=== PATIENT | male | born 1940 | race Native Hawaiian/Other Pacific Islander ===

== ENCOUNTER 2016-05-28 23:30 | Inpatient (IN) | payer OTHER, MEDICARE ==
[~2016-05-28] VITALS: Ht 172.7 cm; Wt 70.0 kg
[~2016-05-28 23:30] MED LIST: ASPI325T PO; ASPI81TA82 PO; ATOR10TA PO; CLON-409 PO; CLON0.2D TD; CLON0.3D T-DERMAL; EMPA1TAB5 PO; ENOX40P SQ; FELO10TA PO; FELO2.5T PO; HYDR-3129 PO; HYDR50TA94 PO; INSU1.2I SQ; LACT10SO47 PO; LIBRAX PO; LIPI10TA PO; LISI-360 PO; LISI-363 PO; NADO40TA PO; NOVOINJ3 SQ; NOVOLOGP2 SQ; PERC10TA27 PO; RAMI10CA PO; Z.0.COMMODE-3:1; Z.0.WALKERFRONT
[2016-05-28 23:40] VITALS: BP 187/83; PULSE 96; RESP 18; TEMP 98; O2SAT 98
[2016-05-28 23:46] VITALS: BP 187/83; PULSE 87; RESP 18; O2SAT 98
[2016-05-28] MEDS ORDERED: SODIUM CHLOR 0.9% 1000 ML INJ 1,000 ML IV SCH (23:46)
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
[2016-05-29] MEDS ORDERED: ceFAZolin 2 GM PREMIX 50 ML IV ONE
[2016-05-29] MEDS ORDERED: DIPHTH/TETANUS/ACEL PERTUSSIS (BOOSTER) 0.5 ML VIAL/PFS IM ONE
[2016-05-29] MEDS ORDERED: ONDANSETRON HCL 4 MG/2 ML VIAL IVP ONE
[2016-05-29] MEDS ORDERED: MORPHINE SULFATE 4 MG/ML INJ IV ONE
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
[2016-05-29 01:32] LABS: APTT (PATIENT) 22.9 SEC (24.3-30.1); INTERNATIONAL NORMALIZED RATIO 0.9 RATIO; PROTHROMBIN TIME - PATIENT 10.3 SEC (9.8-11.6)
[2016-05-29 01:33] LABS: BLOOD, URINE NEG (NEG); COMMENT (UR) CULT NOT INDICATED; CULTURE IF INDICATED CULT NOT INDICATED; GLUCOSE,URINE NEG (NEG); KETONE, URINE NEG (NEG); MUCUS URINE FEW /lpf (OCC); NITRITE,URINE NEG (NEG); PH, URINE 5.5 (5.0-8.5); SQUAMOUS EPITHELIAL CELL URINE <1 /hpf (0-5); URINE COLOR YELLOW (YELLW/STRAW)
[2016-05-29 01:46] LABS: ALKALINE PHOSPHATASE 49 U/L (45-117); TOTAL BILIRUBIN ADULT 0.4 MG/DL (0.2-1.0)
[2016-05-29 01:53] VITALS: BP 177/77; PULSE 97; RESP 18; TEMP 98; O2SAT 97
[2016-05-29 02:07] LABS: ALT (GPT) 28 U/L (12-78); ANION GAP 9 MEQ/L (5-15); AST (GOT) 22 U/L (15-37); BICARBONATE 26.8 MEQ/L (21.0-32.0); BLOOD UREA NITROGEN 22 MG/DL (7-18); CHLORIDE 105 MEQ/L (98-107); GLOMERULAR FILTRATION RATE 79 ML/MIN (>89); SODIUM (NA) 141 MEQ/L (136-145)
[2016-05-29 02:09] LABS: POTASSIUM 4.4 MEQ/L (3.5-5.1)
[2016-05-29 03:56] LABS: AUTOMATED NEUTROPHIL # 10.4 TH/MM3 (1.8-7.7); BASOPHIL # 0.1 TH/MM3 (0-0.2); BASOPHIL % 0.7 % (0.0-2.0); EOSINOPHIL # 0.1 TH/MM3 (0-0.4); EOSINOPHIL % 1.1 % (0.0-4.0); HEMATOCRIT 35.3 % (39.0-51.0); LYMPH % 15.1 % (9.0-44.0); LYMPHOCYTE # 2.1 TH/MM3 (1.0-4.8); MEAN CORPUSCULAR HEMOGLOBIN 33.3 PG (27.0-34.0); MEAN CORPUSCULAR HGB CONC 34.3 % (32.0-36.0); MONO % 7.2 % (0.0-8.0); NEUT % 75.9 % (16.0-70.0); PLATELET COUNT 343 TH/MM3 (150-450); RED BLOOD COUNT 3.64 MIL/MM3 (4.50-5.90); RED CELL DISTRIBUTION WIDTH 13.3 % (11.6-17.2); WHITE BLOOD COUNT 13.6 TH/MM3 (4.0-11.0)
[2016-05-29 03:57] LABS: HEMO FLAGS AUTO DIFF
[2016-05-29] MEDS: SODIUM CHLOR 0.9% 1000 ML INJ 1,000 ML IV SCH ×2 (03:58→13:45)
[2016-05-29] MEDS: MORPHINE SULFATE 4 MG/ML INJ IV PRN ×6 (03:58→21:31)
--- NOTE | 2016-05-29 04:09 | RADRPT ---
EXAM DATE/TIME: 05/29/2016 03:24 [facility] COMPARISON: KNEE RIGHT COMPLETE (4VWS), May 29, 2016, 0:30. INDICATIONS : Abnormal xrays, evaluate fracture. RADIATION DOSE: 18.22 CTDIvol (mGy) MEDICAL HISTORY : Diabetes mellitus type 2. Cardiovascular disease Cerebrovascular disease. SURGICAL HISTORY : None. ENCOUNTER: Initial ACUITY: 1 day PAIN SCALE: 5/10 LOCATION: Right knee TECHNIQUE: Volumetric scanning of the knee was performed. Using automated exposure control and adjustment of th e mA and/or kV according to patient size, radiation dose was kept as low as reasonably achievable to obtain optimal diagnostic quality images. FINDINGS: There is a lipohemarthrosis. There is subcutaneous edema. There is a mildly displaced fracture throug h the head of the fibula. Coronal images best demonstrate a fracture through the proximal tibial meta physis extending into the articular surface of the medial and lateral tibial plateaus. There is a williams y slight cortical step off seen of the medial tibial plateau. CONCLUSION: Tibia and fibular fractures. Lazaro Kaur MD on May 29, 2016 at 4:05 Board Certified Radiologist. This report was verified electronically.
--- NOTE | 2016-05-29 04:11 | RADRPT ---
EXAM DATE/TIME: 05/29/2016 03:24 [facility] COMPARISON: KNEE LEFT COMPLETE (4VWS), May 29, 2016, 0:34. INDICATIONS : Abnormal xrays, evaluate fracture. RADIATION DOSE: 18.22 CTDIvol (mGy) MEDICAL HISTORY : Diabetes mellitus type 2. Cardiovascular disease Cerebrovascular disease. SURGICAL HISTORY : None. ENCOUNTER: Initial ACUITY: 1 day PAIN SCALE: 5/10 LOCATION: Left knee TECHNIQUE: Volumetric scanning of the knee was performed. Using automated exposure control and adjustment of th e mA and/or kV according to patient size, radiation dose was kept as low as reasonably achievable to obtain optimal diagnostic quality images. FINDINGS: A lipohemarthrosis is noted. There is a comminuted mildly anteriorly and inferiorly displaced fractur e through the proximal tibia at the level of the medial tibial plateau, as well as a displaced fractu re fragment off the head of the proximal fibula. CONCLUSION: 1. Proximal fibular and tibial fractures. Lazaro Kaur MD on May 29, 2016 at 4:07 Board Certified Radiologist. This report was verified electronically.
[2016-05-29 04:41] LABS: BANDS 3 % (0-6); EOSINOPHILS 1 % (0-4); METAMYELOCYTES 2 % (0-1); MYELOCYTES 1 % (0-0); NEUTROPHIL # MANUAL DIFF 10.5 TH/MM3 (1.8-7.7); POLYS (SEG NEUTROPHILS) 71 % (16-70); SCAN/DIFF FINAL DIFF MANUAL; WBC DIFF SAMPLE 100
[2016-05-29 04:42] LABS: PLATELET ESTIMATE SMEAR NORMAL (NORMAL); PLATELET MORPHOLOGY NORMAL (NORMAL)
[2016-05-29 05:21] VITALS: BP 145/103; PULSE 123; RESP 18; TEMP 97.9; O2SAT 97
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
--- NOTE | 2016-05-29 07:14 | HHI.FF ---
Face to Face Verification Diagnosis: (1) Fracture tibia/fibula Physical Therapy Transfer training, bed to chair, Wheelchair training Knee: Knee fracture, Protocol: Right, Protocol: Left, Non weight bearing Canvas Knee Splint: Remove only with PT Right LE Weight Bearing: Non WB, No Strengthening, No Quad Sets Right LE Range of Motion: Passive ROM (0-90deg) Left LE Weight Bearing: Non WB, No Strengthening, No Quad Sets Left LE Range of Motion: Passive ROM (0-90deg) Nursing Nursing: Dressing changes Dressing Changes: Daily dressing change, Dutch wrap, 4x4s, Xeroform I have seen patient Marito Tong on 05/29/16. My clinical findings support the need for the requested home health care services because: Ltd mobility - disease progression I certify that my clinical findings support that this patient is homebound because: Post-op weakness Mustapha Romero May 29, 2016 07:14
[2016-05-29] MEDS ORDERED: WHEEMIS3 (07:16)
[2016-05-29 07:51] VITALS: BP 158/73; PULSE 108; RESP 16; TEMP 98.7; O2SAT 96
[2016-05-29] MEDS ORDERED: ONDANSETRON HCL 4 MG/2 ML VIAL IV PRN (08:30)
[2016-05-29] MEDS ORDERED: ENALAPRILAT 1.25 MG/ML VIAL IV PRN (08:30)
[2016-05-29] MEDS ORDERED: ACETAMINOPHEN 325 MG TAB PO PRN (08:30)
[2016-05-29] MEDS ORDERED: SODIUM CHLORIDE 0.9% FLUSH 10 ML FLUSH IV FLUSH PRN (08:30)
[2016-05-29] MEDS ORDERED: DEXTROSE 50% IN WATER 50 ML VIAL(D50) IV PUSH PRN (08:45)
[2016-05-29] MEDS ORDERED: GLUCAGON 1 MG/ML VIAL OTHER PRN (08:45)
[2016-05-29] MEDS ORDERED: cloNIDine HCL 0.3 MG/24 HR PATCH T-DERMAL SCH (09:00)
--- NOTE | 2016-05-29 09:22 | EKG ---
Date Performed: 05/29/2016 Time Performed: 02:31:17 PTAGE: 76 years EKG: SINUS TACHYCARDIA MODERATE T-WAVE ABNORMALITY, CONSIDER LATERAL ISCHEMIA MODERATE T-WAVE AB NORMALITY, CONSIDER INFERIOR ISCHEMIA ABNORMAL ECG PREVIOUS TRACING : 06/09/2015 12.59 DOCTOR: Gregorio Porter Interpretating Date/Time 05/29/2016 09:19:56
[2016-05-29] MEDS: KETOROLAC TROMETHAMINE 30 MG/ML (IVP) VIAL IV PUSH SCH ×3 (09:56→21:12)
[2016-05-29] MEDS: POLYETHYLENE GLYCOL 17 GM PKG PO SCH (09:56)
[2016-05-29] MEDS: NADOLOL 40 MG TAB PO SCH (09:57)
[2016-05-29] MEDS: RAMIPRIL 5 MG CAP PO SCH ×2 (09:57→21:11)
[2016-05-29] MEDS: GABAPENTIN 300 MG CAP PO SCH ×3 (09:58→18:00)
[2016-05-29] MEDS: FAMOTIDINE 20 MG TAB PO SCH ×2 (09:58→21:00)
[2016-05-29] MEDS: BACITRACIN TOP OINT 15 GM TUBE TOP SCH ×2 (09:58→21:12)
[2016-05-29] MEDS: DOCUSATE SODIUM 50 MG/SENNA 8.6 MG TAB PO SCH ×2 (09:59→21:11)
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
[2016-05-29] MEDS: INSULIN NovoLIN REGULAR SUPPLEMENTAL SCALE SQ SCH ×3 (11:00→21:12)
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
[2016-05-29 11:41] VITALS: BP 163/75; PULSE 95; RESP 19; TEMP 99.3; O2SAT 99
[2016-05-29] MEDS ORDERED: BISACODYL 10 MG SUPP PR PRN (11:45)
[2016-05-29] MEDS: LACTULOSE SYRUP 20 GM/30 ML CUP PO SCH (13:28)
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
[2016-05-29 16:15] VITALS: BP 164/71; PULSE 100; RESP 17; TEMP 100.4; O2SAT 95
[2016-05-29 19:33] VITALS: BP 208/84; PULSE 107; RESP 18; TEMP 97.9; O2SAT 97
[2016-05-29] MEDS ORDERED: FELODIPINE 10 MG PO SCH (21:00)
[2016-05-29] MEDS ORDERED: CLONIDINE 0.1 MG PO SCH (21:00)
[2016-05-29] MEDS: ATORVASTATIN 10 MG TAB PO SCH (21:11)
[2016-05-30] MEDS: MORPHINE SULFATE 4 MG/ML INJ IV PRN ×3 (01:10→10:53)
[2016-05-30 01:30] VITALS: BP 156/89; PULSE 97; RESP 18; TEMP 98.2; O2SAT 97
[2016-05-30] MEDS: KETOROLAC TROMETHAMINE 30 MG/ML (IVP) VIAL IV PUSH SCH ×4 (04:00→21:10)
[2016-05-30 06:17] LABS: AUTOMATED NEUTROPHIL # 14.3 TH/MM3 (1.8-7.7); BASOPHIL # 0.1 TH/MM3 (0-0.2); BASOPHIL % 0.4 % (0.0-2.0); EOSINOPHIL # 0.2 TH/MM3 (0-0.4); EOSINOPHIL % 1.1 % (0.0-4.0); HEMO FLAGS DIFF FINAL; LYMPH % 14.6 % (9.0-44.0); LYMPHOCYTE # 2.8 TH/MM3 (1.0-4.8); MEAN CELL VOLUME 95.6 FL (80.0-100.0); MEAN CORPUSCULAR HGB CONC 33.5 % (32.0-36.0); MONO % 8.3 % (0.0-8.0); NEUT % 75.6 % (16.0-70.0); PLATELET COUNT 256 TH/MM3 (150-450); RED BLOOD COUNT 3.45 MIL/MM3 (4.50-5.90)
[2016-05-30 06:25] VITALS: BP 156/80; PULSE 86; RESP 18; TEMP 98.2; O2SAT 97
[2016-05-30 06:43] LABS: ALKALINE PHOSPHATASE 51 U/L (45-117); ALT (GPT) 21 U/L (12-78); ANION GAP 12 MEQ/L (5-15); AST (GOT) 21 U/L (15-37); BICARBONATE 20.3 MEQ/L (21.0-32.0); BLOOD UREA NITROGEN 19 MG/DL (7-18); CHLORIDE 105 MEQ/L (98-107); GLOMERULAR FILTRATION RATE 75 ML/MIN (>89); POTASSIUM 3.8 MEQ/L (3.5-5.1); SODIUM (NA) 137 MEQ/L (136-145); TOTAL BILIRUBIN ADULT 0.7 MG/DL (0.2-1.0)
[2016-05-30] MEDS: INSULIN NovoLIN REGULAR SUPPLEMENTAL SCALE SQ SCH ×4 (06:48→21:00)
[2016-05-30 07:35] VITALS: BP 130/56; PULSE 112; RESP 20; TEMP 96.1; O2SAT 97
[2016-05-30] MEDS: DOCUSATE SODIUM 50 MG/SENNA 8.6 MG TAB PO SCH ×2 (09:00→21:06)
[2016-05-30] MEDS: POLYETHYLENE GLYCOL 17 GM PKG PO SCH (09:00)
[2016-05-30] MEDS: FAMOTIDINE 20 MG TAB PO SCH ×2 (09:00→21:07)
[2016-05-30] MEDS: INSULIN GLARGINE SQ SCH (09:00)
[2016-05-30] MEDS: NADOLOL 40 MG TAB PO SCH (09:29)
[2016-05-30] MEDS: GABAPENTIN 300 MG CAP PO SCH ×3 (09:29→17:45)
[2016-05-30] MEDS: LACTULOSE SYRUP 20 GM/30 ML CUP PO SCH (09:29)
[2016-05-30] MEDS: RAMIPRIL 5 MG CAP PO SCH ×2 (09:30→21:06)
[2016-05-30] MEDS: BACITRACIN TOP OINT 15 GM TUBE TOP SCH ×2 (09:31→21:10)
[2016-05-30] MEDS ORDERED: PNEUMOCOCCAL POLYVALENT INJ 25 MCG/0.5 ML SYR IM ONE (10:00)
--- NOTE | 2016-05-30 10:49 | HHI.PR ---
Subjective Remarks Patient seen and examined Denies chest pain or shortness of breath Afebrile by the bedside Objective Vitals Vital Signs Date Time Temp Pulse Resp B/P Pulse Ox O2 Delivery O2 Flow Rate FiO2 05/30/16 10:28 16 05/30/16 07:35 96.1 112 20 130/56 97 05/30/16 06:47 21 05/30/16 06:25 98.2 86 18 156/80 97 05/30/16 01:30 98.2 97 18 156/89 97 05/29/16 19:33 97.9 107 18 208/84 97 05/29/16 16:15 100.4 100 17 164/71 95 05/29/16 11:41 99.3 95 19 163/75 99 I/O 05/29/16 05/29/16 05/29/16 05/30/16 05/30/16 05/30/16 07:00 15:00 23:00 07:00 15:00 23:00 Intake Total 700 ml Output Total 950 ml Balance -250 ml Intake Oral 700 ml Output Urine Total 950 ml # Bowel Movements 6 Result Diagram: 05/30/16 0537 05/30/16 0537 Imaging Last Impressions Lower Extremity CT 05/29/16 0000 Signed Impressions: Service Date/Time: Sunday, May 29, 2016 03:24 - CONCLUSION: 1. Proximal fibular and tibial fractures. Lazaro Kaur MD Tibia/Fibula X-Ray 05/28/162345 Signed Impressions: Service Date/Time: Sunday, May 29, 2016 00:31 - CONCLUSION: Proximal fibular fracture and findings concerning for proximal tibial fracture at the level of the medial tibial plateau. Lazaro Kaur MD Pelvis X-Ray 05/28/162345 Signed Impressions: Service Date/Time: Sunday, May 29, 2016 00:26 - CONCLUSION: No acute disease. Lazaro Kaur MD Knee X-Ray 05/28/162345 Signed Impressions: Service Date/Time: Sunday, May 29, 2016 00:30 - CONCLUSION: Proximal tibia and fibular fractures. Knee joint effusion. Lazaro Kaur MD Chest X-Ray 05/28/162345 Signed Impressions: Service Date/Time: Sunday, May 29, 2016 00:23 - CONCLUSION: No acute disease. Lazaro Kaur MD Ankle X-Ray 05/28/16 0909 Signed Impressions: Service Date/Time: Sunday, May 29, 2016 00:33 - CONCLUSION: No acute disease. Lazaro Kaur MD Objective Remarks GENERAL: Well developed, well nourished. NAD HEENT: ATNC. EOMI, PERRL. OP clear with moist mucous membranes. Neck supple. LUNGS: Clear to auscultation bilaterally. No increased work of breathing. CARDIOVASCULAR: RRR without murmur. EXT: MAEX4. No c/c/e. NEURO: No focal deficits. SKIN: Color normal. No rashes. No lesions. PSYCH/MENTAL STATUS: Alert and oriented x 4 (P,P,T,E). Normal affect A/P Assessment and Plan 76 yrs old man with 1-Bilateral Nondisplaced tibial plateaux fractures: Seen by Orthopedic and no surgery. Instead conservative management. NWB, pain management and PT consult. - no quad sets or leg lifts. Maintain knee braces at all times and PROM 0-90 2-DM2 : Currently on Low ISS + FSBG monitoring; continue home regiment Basal insulin 3-Hypertension: Continue with outpatient medication 4-Constipation: Resolved and continue Stool softener Leukocytosis: Likely stress reactive Bg Michel MD May 30, 2016 10:49
[2016-05-30 11:38] VITALS: BP 114/59; PULSE 88; RESP 18; TEMP 97; O2SAT 96
--- NOTE | 2016-05-30 16:35 | HHI.PR ---
Subjective Subjective Notes Pain controlled. Planning on going to the [facility] on discharge. Objective Vitals/I&O Vital Signs Date Time Temp Pulse Resp B/P Pulse Ox O2 Delivery O2 Flow Rate FiO2 05/30/16 11:38 97.0 88 18 114/59 96 05/29/16 01:53 Room Air Labs Laboratory Tests Test 05/30/16 05:37 White Blood Count 19.0 Red Blood Count 3.45 Hemoglobin 11.0 Hematocrit 33.0 Mean Corpuscular Volume 95.6 Mean Corpuscular Hemoglobin 32.0 Mean Corpuscular Hemoglobin 33.5 Concent Red Cell Distribution Width 13.0 Platelet Count 256 Mean Platelet Volume 7.6 Neutrophils (%) (Auto) 75.6 Lymphocytes (%) (Auto) 14.6 Monocytes (%) (Auto) 8.3 Eosinophils (%) (Auto) 1.1 Basophils (%) (Auto) 0.4 Neutrophils # (Auto) 14.3 Lymphocytes # (Auto) 2.8 Monocytes # (Auto) 1.6 Eosinophils # (Auto) 0.2 Basophils # (Auto) 0.1 CBC Comment DIFF FINAL Differential Comment Sodium Level 137 Potassium Level 3.8 Chloride Level 105 Carbon Dioxide Level 20.3 Anion Gap 12 Blood Urea Nitrogen 19 Creatinine 0.97 Estimat Glomerular Filtration 75 Rate Random Glucose 193 Calcium Level 8.3 Total Bilirubin 0.7 Aspartate Amino Transf 21 (AST/SGOT) Alanine Aminotransferase 21 (ALT/SGPT) Alkaline Phosphatase 51 Total Protein 5.3 Albumin 2.5 Radiology Last Impressions Lower Extremity CT 05/29/16 0000 Signed Impressions: Service Date/Time: Sunday, May 29, 2016 03:24 - CONCLUSION: 1. Proximal fibular and tibial fractures. Lazaro Kaur MD Tibia/Fibula X-Ray 05/28/162345 Signed Impressions: Service Date/Time: Sunday, May 29, 2016 00:31 - CONCLUSION: Proximal fibular fracture and findings concerning for proximal tibial fracture at the level of the medial tibial plateau. Lazaro Kaur MD Pelvis X-Ray 05/28/162345 Signed Impressions: Service Date/Time: Sunday, May 29, 2016 00:26 - CONCLUSION: No acute disease. Lazaro Kaur MD Knee X-Ray 05/28/162345 Signed Impressions: Service Date/Time: Sunday, May 29, 2016 00:30 - CONCLUSION: Proximal tibia and fibular fractures. Knee joint effusion. Lazaro Kaur MD Chest X-Ray 05/28/162345 Signed Impressions: Service Date/Time: Sunday, May 29, 2016 00:23 - CONCLUSION: No acute disease. Lazaro Kaur MD Ankle X-Ray 05/28/162345 Signed Impressions: Service Date/Time: Sunday, May 29, 2016 00:33 - CONCLUSION: No acute disease. Lazaro Kaur MD Narrative Exam GENERAL: 76-year-old well-nourished, well developed male lying in bed. SKIN: Warm and dry. HEAD: Atraumatic. Normocephalic. ENT: No nasal bleeding or discharge. Mucous membranes pink and moist. NECK: Trachea midline. No JVD. CARDIOVASCULAR: Regular rate and rhythm. RESPIRATORY: No accessory muscle use. Lungs clear to auscultation. Breath sounds equal bilaterally. GASTROINTESTINAL: Abdomen soft, non-tender, nondistended. + BS. MUSCULOSKELETAL: Extremities without cyanosis, or edema. No obvious deformities. Bilateral CKS in place. LLE with Dutch wrap. + pulses, skin warm and dry. NEUROLOGICAL: Awake and alert. Normal speech. A/P Assessment and Plan INJURIES: BILAT non-displaced tibial plateau fxs (non-op) PMHX: HLD, HTN, DM, CVA, Diet: ADA Pulmonary: IS, encouraged patient use Pain: Morphine, Neurontin, Toradol. Adding oral pain medication. Activity: BR, PT ordered. ( NWB BLE) GI: Pepcid Bowel: Macy-colace, Miralax Lactulose QD. Dulcolax [place] PRN. No BM yet DVT: SCDs DM- Low dose SSI. Hospitalist consulted for medical management. Orthopedics following. Plan for nonweightbearing and nonoperative treatment for bilateral tibial plateau fractures. Case management consulted to assist with discharge planning. Patient requests the [facility] rehabilitation. Plan of care discussed with patient and at bedside. The exam, history, and the medical decision-making described in the above note were completed with the assistance of the mid-level provider. I reviewed and agree with the findings presented. I attest that I had a [id number] encounter with the patient on the same day, and personally performed and documented my assessment and findings in the medical record. Edmund Busby May 30, 2016 16:35 Jay Castorena MD Jun 15, 2016 23:31
[2016-05-30] MEDS: ENOXAPARIN SODIUM 30 MG/0.3 ML SYRINGE SQ SCH (17:45)
[2016-05-30 19:26] VITALS: BP 126/58; PULSE 81; RESP 20; TEMP 98.8; O2SAT 97
[2016-05-30] MEDS: ATORVASTATIN 10 MG TAB PO SCH (21:06)
[2016-05-31 00:05] VITALS: BP 158/83; PULSE 87; RESP 20; TEMP 97.9; O2SAT 98
[2016-05-31] MEDS: MORPHINE SULFATE 4 MG/ML INJ IV PRN ×2 (03:41→12:38)
[2016-05-31] MEDS: ENOXAPARIN SODIUM 30 MG/0.3 ML SYRINGE SQ SCH (03:42)
[2016-05-31] MEDS: KETOROLAC TROMETHAMINE 30 MG/ML (IVP) VIAL IV PUSH SCH ×2 (03:48→10:00)
[2016-05-31 04:07] VITALS: BP 136/64; PULSE 87; RESP 18; TEMP 98.6; O2SAT 98
[2016-05-31 06:00] LABS: AUTOMATED NEUTROPHIL # 10.6 TH/MM3 (1.8-7.7); BASOPHIL # 0.1 TH/MM3 (0-0.2); BASOPHIL % 0.4 % (0.0-2.0); EOSINOPHIL # 0.1 TH/MM3 (0-0.4); EOSINOPHIL % 0.8 % (0.0-4.0); HEMATOCRIT 27.4 % (39.0-51.0); HEMO FLAGS DIFF FINAL; LYMPH % 11.3 % (9.0-44.0); LYMPHOCYTE # 1.5 TH/MM3 (1.0-4.8); MEAN CELL VOLUME 95.8 FL (80.0-100.0); MEAN CORPUSCULAR HEMOGLOBIN 32.8 PG (27.0-34.0); MEAN CORPUSCULAR HGB CONC 34.3 % (32.0-36.0); MONO % 8.3 % (0.0-8.0); NEUT % 79.2 % (16.0-70.0); PLATELET COUNT 202 TH/MM3 (150-450); RED BLOOD COUNT 2.86 MIL/MM3 (4.50-5.90); RED CELL DISTRIBUTION WIDTH 13.2 % (11.6-17.2); WHITE BLOOD COUNT 13.3 TH/MM3 (4.0-11.0)
[2016-05-31] MEDS: INSULIN NovoLIN REGULAR SUPPLEMENTAL SCALE SQ SCH ×2 (06:09→11:00)
[2016-05-31 06:19] LABS: BICARBONATE 23.6 MEQ/L (21.0-32.0)
[2016-05-31 07:59] VITALS: BP 126/60; PULSE 89; RESP 20; O2SAT 98
[2016-05-31] MEDS: DOCUSATE SODIUM 50 MG/SENNA 8.6 MG TAB PO SCH (08:28)
[2016-05-31] MEDS: NADOLOL 40 MG TAB PO SCH (08:28)
[2016-05-31] MEDS: RAMIPRIL 5 MG CAP PO SCH (08:28)
[2016-05-31] MEDS: GABAPENTIN 300 MG CAP PO SCH ×2 (08:28→12:38)
[2016-05-31] MEDS: LACTULOSE SYRUP 20 GM/30 ML CUP PO SCH (08:31)
[2016-05-31] MEDS: POLYETHYLENE GLYCOL 17 GM PKG PO SCH (08:32)
[2016-05-31] MEDS: INSULIN GLARGINE SQ SCH (08:33)
[2016-05-31] MEDS: BACITRACIN TOP OINT 15 GM TUBE TOP SCH (08:33)
[2016-05-31] MEDS: FAMOTIDINE 20 MG TAB PO SCH (08:34)
[2016-05-31] MEDS: oxyCODONE/ACETAMINOPHEN 5 MG/325 MG TAB PO PRN ×2 (08:35→12:37)
[2016-05-31 11:00] VITALS: BP 105/49; PULSE 73; RESP 16; TEMP 98; O2SAT 96
--- NOTE | 2016-05-31 11:04 | HHI.PR ---
Subjective Remarks patient seen and examined Right leg swelling is improving and no significant left lower extremity pain NO acute event overnight Objective Vitals Vital Signs Date Time Temp Pulse Resp B/P Pulse Ox O2 Delivery O2 Flow Rate FiO2 05/31/16 07:59 89 20 126/60 98 05/31/16 04:07 98.6 87 18 136/64 98 05/31/16 03:46 12 05/31/16 00:05 97.9 87 20 158/83 98 05/30/16 22:10 12 05/30/16 19:26 98.8 81 20 126/58 97 05/30/16 11:38 97.0 88 18 114/59 96 I/O 05/30/16 05/30/16 05/30/16 05/31/16 05/31/16 05/31/16 07:00 15:00 23:00 07:00 15:00 23:00 Intake Total 700 ml Output Total 950 ml Balance -250 ml Intake Oral 700 ml Output Urine Total 950 ml # Bowel Movements 6 1 Result Diagram: 05/31/16 0459 05/31/16 0459 Objective Remarks GENERAL: Well developed, well nourished. NAD HEENT: ATNC. EOMI, PERRL. OP clear with moist mucous membranes. Neck supple. LUNGS: Clear to auscultation bilaterally. No increased work of breathing. CARDIOVASCULAR: RRR without murmur. EXT: MAEX4. No c/c/e. NEURO: No focal deficits. SKIN: Color normal. No rashes. No lesions. PSYCH/MENTAL STATUS: Alert and oriented x 4 (P,P,T,E). Normal affect A/P Assessment and Plan 76 yrs old man with 1-Bilateral Nondisplaced tibial plateaux fractures: Seen by Orthopedic and no surgery. Instead conservative management. NWB, pain management and PT consult. - no quad sets or leg lifts. Maintain knee braces at all times and PROM 0-90 2-DM2 : Good glycemic controlled; Currently on Low ISS + FSBG monitoring; continue home regiment Basal insulin 3-Hypertension: Continue with outpatient medication 4-Constipation: Resolved and continue Stool softener Bg Michel MD May 31, 2016 11:04
[2016-05-31] MEDS ORDERED: POLY17S PO (14:32)
[2016-05-31] MEDS ORDERED: BACI500O2 TOP (14:32)
[2016-05-31] MEDS ORDERED: ENOX30P SQ (14:32)
[2016-05-31] MEDS ORDERED: NEUR300C PO (14:32)
[2016-05-31] MEDS ORDERED: OXYC1TAB63 PO (14:32)
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
[2016-06-05] MEDS ORDERED: REMOVE OLD CATAPRES (CLONIDINE) PATCH TD SCH (09:00)
[2016-06-19] MEDS ORDERED: commode (16:15)
[2016-06-19] MEDS ORDERED: WHEEMIS3 (16:15)
[2016-06-19] MEDS ORDERED: TRANSFER BENCH1 MIS (16:15)
[2016-06-24] MEDS ORDERED: MELA1TAB22 PO (11:03)
[2016-06-24] MEDS ORDERED: PERC10TA27 PO (11:03)
[2016-06-24] MEDS ORDERED: GABA100C4 PO (11:03)
[2016-06-24] MEDS ORDERED: HYDR10TA23 PO (11:03)
[2016-06-24] MEDS ORDERED: CLON0.3D T-DERMAL (11:03)
[2016-06-24] MEDS ORDERED: NADO40TA PO (11:03)
[2016-06-24] MEDS ORDERED: XARE10TA PO (11:03)
[2016-06-24] MEDS ORDERED: LIPI10TA PO (11:03)
[2016-06-24] MEDS ORDERED: RAMI10CA PO (11:03)
== END 2016-05-31 15:46 | DRG 563 ==
LOC: NEPE 23:30 → NEDA 05-29 01:41 → NEPFCDU 05-29 03:29 → N06A 05-31 11:16
PROVIDERS: ADMIT Surgery; ATTEND Surgery
DX: S82.145A Nondisplaced bicondylar fracture of left tibia, initial encounter for closed fracture (principal); S82.144A Nondisplaced bicondylar fracture of right tibia, initial encounter for closed fracture; S81.812A Laceration without foreign body, left lower leg, initial encounter; S81.811A Laceration without foreign body, right lower leg, initial encounter; V03.09XA Pedestrian with other conveyance injured in collision with car, pick-up truck or van in nontraffic accident, initial encounter; Y93.89 Activity, other specified; Y92.008 Other place in unspecified non-institutional (private) residence as the place of occurrence of the external cause; E11.9 Type 2 diabetes mellitus without complications; Z79.4 Long term (current) use of insulin; I10 Essential (primary) hypertension; M48.00 Spinal stenosis, site unspecified; G89.29 Other chronic pain; M54.9 Dorsalgia, unspecified; E78.00 Pure hypercholesterolemia, unspecified; K58.9 Irritable bowel syndrome, unspecified; Z86.73 Personal history of transient ischemic attack (TIA), and cerebral infarction without residual deficits; H91.90 Unspecified hearing loss, unspecified ear; Z96.641 Presence of right artificial hip joint
CPT/HCPCS: 71010; 72170; 73564; 73590; 73600; 73700; 80048; 80053; 81001; 82948; 85007; 85025; 85027; 85610; 85730; 90715; 93005; 94150; J0690; J1650; J1885; J2270; J7030; L1830

== ENCOUNTER 2016-08-07 09:10 | Inpatient (IN) | payer MEDICARE ==
[2016-08-07] VITALS (8 sets, daily range): BP systolic 78–171; BP diastolic 46–78; PULSE 98–111; RESP 16–20; TEMP 98.5–100.6; O2SAT 95–98
[~2016-08-07] VITALS: Ht 170.2 cm; Wt 79.0 kg
[~2016-08-07 09:10] MED LIST changes: -ASPI325T PO; -ASPI81TA82 PO; -ATOR10TA PO; -CLON-409 PO; -CLON0.2D TD; -EMPA1TAB5 PO; -ENOX40P SQ; -FELO10TA PO; -FELO2.5T PO; +GABA100C4 PO; -HYDR-3129 PO; +HYDR10TA23 PO; -HYDR50TA94 PO; -LACT10SO47 PO; -LIBRAX PO; -LISI-360 PO; -LISI-363 PO; +MELA1TAB22 PO; -NOVOINJ3 SQ; +OXYC1TAB63 PO; +TRANSFER BENCH1 MIS; +WHEEMIS3; +XARE10TA PO; -Z.0.COMMODE-3:1; -Z.0.WALKERFRONT; +commode
[2016-08-07] MEDS ORDERED: SODIUM CHLOR 0.9% 1000 ML INJ 400 ML IV ONE (09:15)
[2016-08-07] MEDS ORDERED: SODIUM CHLOR 0.9% 1000 ML INJ 1,000 ML IV ONE ×2 (09:15)
[2016-08-07 09:23] LABS: BLOOD GAS VENOUS BASE EXCESS -1.8 mmol/L (-2-2); BLOOD GAS VENOUS HCO3 22 mmol/L (22-26); BLOOD GAS VENOUS O2 CONTENT 12.2 Vol % (9.0-17.0); BLOOD GAS VENOUS O2 HGB SAT 72 % (70-76); BLOOD GAS VENOUS PCO2 31 mmHg (44-48); BLOOD GAS VENOUS PO2 39 mmHg (35-40); BLOOD GAS VENOUS pH 7.46 (7.360-7.400); TEMP CORR TO 98.6
[2016-08-07 09:24] LABS: CRITICAL VALUE NO; DRAW SITE I.V.; FIO2 21 %; OXYGEN DEVICE ROOM AIR; STAT YES
[2016-08-07] MEDS ORDERED: ASP: Documented allergy to Penicillins or Cephalosporins XX PRN (09:30)
[2016-08-07] MEDS ORDERED: ASP: Documented ESBL, MDR A baumannii or P. aeruginosa XX PRN (09:30)
[2016-08-07] MEDS: ERTAPENEM INJ 1,000 MG in SODIUM CHLORIDE 0.9% INJ 100 ML IV SCH (09:30)
[2016-08-07] MEDS ORDERED: VANCOMYCIN INJ 1,000 MG in SODIUM CHLOR 0.9% 250 ML INJ 250 ML IV ONE (09:30)
[2016-08-07] MEDS ORDERED: MISCELLANEOUS PHARMACY INFORMATION XX PRN (09:30)
[2016-08-07 09:47] LABS: AUTOMATED NEUTROPHIL # 13.9 TH/MM3 (1.8-7.7); BASOPHIL % 0.3 % (0.0-2.0); EOSINOPHIL # 0.2 TH/MM3 (0-0.4); EOSINOPHIL % 1.3 % (0.0-4.0); LYMPH % 5.9 % (9.0-44.0); LYMPHOCYTE # 0.9 TH/MM3 (1.0-4.8); MEAN CELL VOLUME 86.2 FL (80.0-100.0); MEAN CORPUSCULAR HEMOGLOBIN 28.7 PG (27.0-34.0); MEAN CORPUSCULAR HGB CONC 33.3 % (32.0-36.0); MONO % 4.4 % (0.0-8.0); NEUT % 88.1 % (16.0-70.0); PLATELET COUNT 345 TH/MM3 (150-450); RED BLOOD COUNT 4.41 MIL/MM3 (4.50-5.90); RED CELL DISTRIBUTION WIDTH 15.4 % (11.6-17.2); WHITE BLOOD COUNT 15.7 TH/MM3 (4.0-11.0)
[2016-08-07 09:51] LABS: HEMO FLAGS AUTO DIFF
[2016-08-07 09:54] LABS: APTT (PATIENT) 27.8 SEC (24.3-30.1); PROTHROMBIN TIME - PATIENT 11.2 SEC (9.8-11.6)
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
[2016-08-07 10:03] LABS: ALT (GPT) 12 U/L (12-78); ANION GAP 9 MEQ/L (5-15); AST (GOT) 20 U/L (15-37); BICARBONATE 25.1 MEQ/L (21.0-32.0); BLOOD UREA NITROGEN 13 MG/DL (7-18); CHLORIDE 103 MEQ/L (98-107); GLOMERULAR FILTRATION RATE 60 ML/MIN (>89); MAGNESIUM 1.6 MG/DL (1.5-2.5); POTASSIUM 3.9 MEQ/L (3.5-5.1); SODIUM (NA) 137 MEQ/L (136-145)
[2016-08-07 10:06] LABS: ALKALINE PHOSPHATASE 76 U/L (45-117); TOTAL BILIRUBIN ADULT 0.7 MG/DL (0.2-1.0)
[2016-08-07 10:12] LABS: CREATINE KINASE 55 U/L (39-308)
[2016-08-07] MEDS ORDERED: MORPHINE SULFATE 4 MG/ML INJ IV PUSH ONE (10:15)
[2016-08-07 10:22] LABS: BANDS 6 % (0-6); EOSINOPHILS 2 % (0-4); NEUTROPHIL # MANUAL DIFF 14.1 TH/MM3 (1.8-7.7); POLYS (SEG NEUTROPHILS) 84 % (16-70); WBC DIFF SAMPLE 100
[2016-08-07 10:23] LABS: PLATELET ESTIMATE SMEAR NORMAL (NORMAL); PLATELET MORPHOLOGY NORMAL (NORMAL); SCAN/DIFF FINAL DIFF MANUAL
[2016-08-07 10:37] LABS: BACTERIA, URINE MANY /hpf; BLOOD, URINE SMALL (NEG); GLUCOSE,URINE NEG (NEG); HYALINE CAST, URINE 28 /lpf (RARE); KETONE, URINE NEG (NEG); MUCUS URINE FEW /lpf (OCC); NITRITE,URINE NEG (NEG); SQUAMOUS EPITHELIAL CELL URINE 4 /hpf (0-5); URINE COLOR YELLOW (YELLW/STRAW)
[2016-08-07 10:40] LABS: COMMENT (UR) CATH-CULTURE IND; CULTURE IF INDICATED CATH CULTURE IND
--- NOTE | 2016-08-07 11:12 | RADRPT ---
EXAM DATE/TIME: 08/07/2016 10:23 [place] COMPARISON: CHEST SINGLE AP, June 07, 2016, 15:18. INDICATIONS : Fever. MEDICAL HISTORY : Cerebrovascular disease. Hypertension. SURGICAL HISTORY : Total hip replacement, right. Bilateral tib/fib. ENCOUNTER: Initial ACUITY: 1 day PAIN SCORE: 0/10 LOCATION: Bilateral chest FINDINGS: A single view of the chest demonstrates the lungs to be symmetrically aerated without evidence of mas s, infiltrate or effusion. The cardiomediastinal contours are unremarkable. Osseous structures are intact. CONCLUSION: No acute disease. David Zapien MD FACR on August 07, 2016 at 11:10 Board Certified Radiologist. This report was verified electronically.
[2016-08-07 11:27] LABS: LACTIC ACID GHOST NOT REPORTABLE
--- NOTE | 2016-08-07 11:33 | RADRPT ---
EXAM DATE/TIME: 08/07/2016 10:52 [facility] COMPARISON: CT BRAIN W/O CONTRAST, June 07, 2016, 16:52. INDICATIONS : Altered mental status hypotensive RADIATION DOSE: 60.52 CTDIvol (mGy) MEDICAL HISTORY : Cerebrovascular disease. 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 Using automated exposure control and adj ustment of the mA and/or kV according to patient size, radiation dose was kept as low as reasonably a chievable to obtain optimal diagnostic quality images. FINDINGS: CEREBRUM: The ventricles are normal for age. No evidence of midline shift, mass lesion, hemorrhage or acute in farction. No extra-axial fluid collections are seen. POSTERIOR FOSSA: The cerebellum and brainstem are intact. The 4th ventricle is midline. The cerebellopontine angle i s unremarkable. EXTRACRANIAL: The visualized portion of the orbits is intact. SKULL: The calvaria is intact. No evidence of skull fracture. Incidental basalganglia and posterior fossa calcifications are noted. CONCLUSION: Negative for acute process. David Zapien MD FACR on August 07, 2016 at 11:31 Board Certified Radiologist. This report was verified electronically.
--- NOTE | 2016-08-07 11:38 | RADRPT ---
EXAM DATE/TIME: 08/07/2016 10:26 [facility] COMPARISON: CT KNEE LEFT W/O CONTRAST, May 29, 2016, 3:24. TIBIA/FIBULA LEFT (AP/LAT), June 05, 2016, 15:37. INDICATIONS : Left lower leg pain after falling today. MEDICAL HISTORY : Cerebrovascular disease. Hypertension. SURGICAL HISTORY : Total hip replacement, right. Bilateral tib/fib. ENCOUNTER: Initial ACUITY: 1 day PAIN SCORE: 6/10 LOCATION: Left lower leg. FINDINGS: 3 views left tibia and fibula. Bone alignment within normal limits. No evidence of acute fracture. F racture deformities of the fibula head and tibial plateau unchanged from prior studies of May 2016. CONCLUSION: No evidence of acute fracture. Charlie Jiménez MD on August 07, 2016 at 11:34 Board Certified Radiologist. This report was verified electronically.
[2016-08-07] MEDS ORDERED: HYDROmorphone HCL PF 1 MG/ML VIAL IV PUSH ONE (11:45)
[2016-08-07] MEDS ORDERED: HYDR-3798 PO (11:47)
[2016-08-07] MEDS ORDERED: VITA100018 PO (11:47)
[2016-08-07] MEDS ORDERED: AUGM875T3 PO (11:49)
--- NOTE | 2016-08-07 11:50 | RADRPT ---
EXAM DATE/TIME: 08/07/2016 10:28 [facility] COMPARISON: CT KNEE RIGHT W/O CONTRAST, May 29, 2016, 3:24. TIBIA/FIBULA RIGHT (AP/LAT), June 05, 2016, 15:45 . INDICATIONS : Right lower leg pain after falling today. MEDICAL HISTORY : Cerebrovascular disease. Hypertension. SURGICAL HISTORY : Total hip replacement, right. Bilateral tib/fib. ENCOUNTER: Initial ACUITY: 1 day PAIN SCORE: 6/10 LOCATION: Right lower leg. FINDINGS: 4 views right tibia and fibula. Fibular head fracture again identified. Minimal deformity of the medi al tibial condyle also indicating old fracture as seen on prior CT. Small joint effusion at the knee. No acute fracture identified. CONCLUSION: Old proximal fibula and tibia fractures. No acute fracture identified. Charlie Jiménez MD on August 07, 2016 at 11:45 Board Certified Radiologist. This report was verified electronically.
--- NOTE | 2016-08-07 11:51 | RADRPT ---
EXAM DATE/TIME: 08/07/2016 10:32 [facility] COMPARISON: No previous studies available for comparison. INDICATIONS : Left hip pain after falling today. MEDICAL HISTORY : Cerebrovascular disease. Hypertension. SURGICAL HISTORY : Total hip replacement, right. Bilateral tib/fib. ENCOUNTER: Initial ACUITY: 1 day PAIN SCORE: 8/10 LOCATION: Left hip. FINDINGS: 3 views of the hips and pelvis. Right total hip prosthesis in place. Alignment within normal limits. No evidence of fracture. Left hip within normal limits. CONCLUSION: Right total hip prosthesis. Left hip within normal limits. Charlie Jiménez MD on August 07, 2016 at 11:48 Board Certified Radiologist. This report was verified electronically.
--- NOTE | 2016-08-07 12:03 | RADRPT ---
EXAM DATE/TIME: 08/07/2016 10:59 [facility] COMPARISON: CHEST SINGLE AP, August 07, 2016, 10:23. INDICATIONS : Hypotensive IV CONTRAST: 74 cc Omnipaque 350 (iohexol) IV RADIATION DOSE: 23.09 CTDIvol (mGy) MEDICAL HISTORY : Hypertension. Cerebrovascular disease. Cardiovascular diseasehx of sudural SURGICAL HISTORY : Back,thyriod ENCOUNTER: Initial ACUITY: 1 day PAIN SCALE: 10/10 LOCATION: chest TECHNIQUE: Volumetric scanning of the chest was performed using a pulmonary embolism protocol MIP images were re constructed. Using automated exposure control and adjustment of the mA and/or kV according to patien t size, radiation dose was kept as low as reasonably achievable to obtain optimal diagnostic quality images. FINDINGS: PULMONARY ARTERIES: No filling defects are seen in the pulmonary arteries through the segmental level. LUNGS: Mild bilateral upper lobe predominant pulmonary parenchymal emphysema. Mild bilateral [place] diffusely in the lungs. Patchy medial right lower lobe atelectasis. PLEURAE: There is no pleural thickening or pleural effusion. MEDIASTINUM: Diffuse aortic calcification. Coronary artery calcification. Multiple subcentimeter iastinal and damien r lymph nodes, likely reactive. Calcified subcarinal lymph node.MUSCULOSKELETAL: Within normal limits for patient age. MISCELLANEOUS: The visualized upper abdominal organs demonstrate no acute abnormality. CONCLUSION: 1. No evidence of pulmonary embolus. 2. 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 3. Coronary artery calcification. 4. Old granulomatous disease. Charlie Jiménez MD on August 07, 2016 at 11:56 Board Certified Radiologist. This report was verified electronically.
[2016-08-07] MEDS ORDERED: IOHEXOL 350 MG/ML 10 ML VIAL (for RAD DIAG) IV ONE (12:15)
--- NOTE | 2016-08-07 13:09 | RADRPT ---
EXAM DATE/TIME: 08/07/2016 12:46 [facility] COMPARISON: No previous studies available for comparison. INDICATIONS : Back pain after fall. MEDICAL HISTORY : Arthritis.Cerebrovascular disease. Hypertension SURGICAL HISTORY : ENCOUNTER: Initial ACUITY: 1 day PAIN SCORE: 8/10 LOCATION: Lumbar spine. FINDINGS: 4 views of the lumbar spine. Large endplate osteophytes at every level of the lumbar spine. Moderate to severe intervertebral disc narrowing at L2-3, L3-4, L4-5, and L5-S1. Severe bony facet hypertrophy at L4-5 and L5-S1. No evidence of fracture. Alignment within normal limits. Diffuse arterial calcifi cation. CONCLUSION: Severe bony degenerative findings of the lumbar spine. Charlie Jiménez MD on August 07, 2016 at 13:06 Board Certified Radiologist. This report was verified electronically.
[2016-08-07] MEDS ORDERED: BISACODYL 10 MG SUPP RECTAL PRN (14:15)
[2016-08-07] MEDS ORDERED: MAGNESIUM HYDROXIDE SUSP 30 ML CUP PO PRN (14:15)
[2016-08-07] MEDS ORDERED: SENNOSIDES 8.6 MG TAB PO PRN (14:15)
[2016-08-07] MEDS ORDERED: ONDANSETRON HCL 4 MG/2 ML VIAL IVP PRN (14:15)
[2016-08-07] MEDS ORDERED: SODIUM CHLORIDE 0.9% FLUSH 10 ML FLUSH IV FLUSH PRN (14:15)
[2016-08-07] MEDS ORDERED: NALOXONE HCL 0.4 MG/ML AMP IV PRN (14:15)
[2016-08-07] MEDS ORDERED: Vancomycin Consult Pharmacy 1 EA OTHER SCH (14:15)
[2016-08-07] MEDS: HEPARIN SODIUM - SQ 10,000 UNITS/ML VIAL SQ SCH ×2 (14:45→21:07)
[2016-08-07] MEDS: SODIUM CHLOR 0.9% 1000 ML INJ 1,000 ML IV SCH (15:00)
--- NOTE | 2016-08-07 16:17 | HHI.PR ---
Vitals/Results Vital Signs Vital Signs Date Time Temp Pulse Resp B/P Pulse Ox O2 Delivery O2 Flow Rate FiO2 08/07/16 14:04 98 16 126/60 97 Room Air 08/07/16 11:15 98.5 107 18 137/60 97 Room Air 08/07/16 10:08 100 18 154/67 95 Nasal Cannula 2 08/07/16 09:32 111 08/07/16 09:32 96 Room Air 08/07/16 09:32 98 2 08/07/16 09:29 99.4 100 16 78/46 97 CBC/BMP: 08/07/16 0920 08/07/16 0920 Lab Results Laboratory Tests Test 08/07/16 08/07/16 08/07/16 08/07/16 09:13 09:20 09:30 11:20 Blood Gas Puncture Site I.V. Blood Gas Patient Temperature 98.6 Venous Blood pH 7.46 Venous Blood Partial Pressure 31 mmHg CO2 Venous Blood Partial Pressure 39 mmHg O2 Venous Blood HCO3 22 mmol/L Venous Blood Oxygen Saturation 72 % Venous Blood Oxygen Content 12.2 Vol % Venous Blood Base Excess -1.8 mmol/L Oxygen Delivery Device ROOM AIR Blood Gas Inspired Oxygen 21 % White Blood Count 15.7 TH/MM3 Red Blood Count 4.41 MIL/MM3 Hemoglobin 12.6 GM/DL Hematocrit 38.0 % Mean Corpuscular Volume 86.2 FL Mean Corpuscular Hemoglobin 28.7 PG Mean Corpuscular Hemoglobin 33.3 % Concent Red Cell Distribution Width 15.4 % Platelet Count 345 TH/MM3 Mean Platelet Volume 7.9 FL Neutrophils (%) (Auto) 88.1 % Lymphocytes (%) (Auto) 5.9 % Monocytes (%) (Auto) 4.4 % Eosinophils (%) (Auto) 1.3 % Basophils (%) (Auto) 0.3 % Neutrophils # (Auto) 13.9 TH/MM3 Lymphocytes # (Auto) 0.9 TH/MM3 Monocytes # (Auto) 0.7 TH/MM3 Eosinophils # (Auto) 0.2 TH/MM3 Basophils # (Auto) 0.0 TH/MM3 CBC Comment AUTO DIFF Differential Total Cells 100 Counted Neutrophils % (Manual) 84 % Band Neutrophils % 6 % Lymphocytes % 5 % Monocytes % 3 % Eosinophils % 2 % Neutrophils # (Manual) 14.1 TH/MM3 Differential Comment FINAL DIFF MANUAL Platelet Estimate NORMAL Platelet Morphology Comment NORMAL Red Cell Morphology Comment NORMAL Prothrombin Time 11.2 SEC Prothromb Time International 1.0 RATIO Ratio Activated Partial 27.8 SEC Thromboplast Time Sodium Level 137 MEQ/L Potassium Level 3.9 MEQ/L Chloride Level 103 MEQ/L Carbon Dioxide Level 25.1 MEQ/L Anion Gap 9 MEQ/L Blood Urea Nitrogen 13 MG/DL Creatinine 1.17 MG/DL Estimat Glomerular Filtration 60 ML/MIN Rate Random Glucose 124 MG/DL Lactic Acid Level 3.0 mmol/L 2.2 mmol/L Calcium Level 8.4 MG/DL Phosphorus Level 3.2 MG/DL Magnesium Level 1.6 MG/DL Total Bilirubin 0.7 MG/DL Aspartate Amino Transf 20 U/L (AST/SGOT) Alanine Aminotransferase 12 U/L (ALT/SGPT) Alkaline Phosphatase 76 U/L Total Creatine Kinase 55 U/L Troponin I 0.04 NG/ML Total Protein 6.2 GM/DL Albumin 2.5 GM/DL Lipase 38 U/L Thyroid Stimulating Hormone 1.140 uIU/ML 3rd Gen Urine Color YELLOW Urine Turbidity CLOUDY Urine pH 6.0 Urine Specific Sullivan 1.016 Urine Protein 30 mg/dL Urine Glucose (UA) NEG mg/dL Urine Ketones NEG mg/dL Urine Occult Blood SMALL Urine Nitrite NEG Urine Bilirubin NEG Urine Urobilinogen LESS THAN 2.0 MG/DL Urine Leukocyte Esterase LARGE Urine RBC 9 /hpf Urine WBC /hpf Urine WBC Clumps MOD Urine Squamous Epithelial 4 /hpf Cells Urine Bacteria MANY /hpf Urine Hyaline Casts 28 /lpf Urine Mucus FEW /lpf Microscopic Urinalysis Comment CATH-CULTURE IND Test 08/07/16 13:45 Lactic Acid Level 1.9 mmol/L Microbiology Microbiology 08/07/16 Aerobic Blood Culture, Received Pending 08/07/16 Anaerobic Blood Culture, Received Pending 08/07/16 Aerobic Blood Culture, Received Pending 08/07/16 Anaerobic Blood Culture, Received Pending 08/07/16 Urine Culture, Received Pending Assessment/Plan Assessment/Plan patient seen and examined please refer to admission h7P for details ESBL+ ECOLI UTI vs colonization Possible allergic reaction to Augmentin no leucocytosis contiue Ertapenem ID consulted resume home meds hold antyihypertensives lactulose for IBD d/w patient, at bed side d/w Vanessa Dodd MD August 07, 2016 16:17
[2016-08-07] MEDS: GABAPENTIN 100 MG CAP PO SCH (16:28)
[2016-08-07] MEDS: LACTULOSE SYRUP 20 GM/30 ML CUP PO PRN (16:29)
[2016-08-07] MEDS ORDERED: REMOVE OLD CATAPRES (CLONIDINE) PATCH T-DERMAL SCH (17:00)
[2016-08-07] MEDS ORDERED: cloNIDine HCL 0.3 MG/24 HR PATCH T-DERMAL SCH (17:00)
[2016-08-07] MEDS: INSULIN DETEMIR 100 UNITS/ML VIAL SQ SCH (17:00)
[2016-08-07] MEDS: ACETAMINOPHEN 325 MG TAB PO PRN (19:12)
[2016-08-07] MEDS ORDERED: RAMIPRIL 10 MG PO SCH (21:00)
[2016-08-07] MEDS: MELATONIN 5 MG TAB PO SCH (21:00)
[2016-08-07] MEDS: SODIUM CHLORIDE 0.9% FLUSH 10 ML FLUSH IV FLUSH SCH (21:00)
[2016-08-07] MEDS ORDERED: VANCOMYCIN INJ 1,000 MG in SODIUM CHLOR 0.9% 250 ML INJ 250 ML IV SCH (21:00)
[2016-08-07] MEDS: oxyCODONE/ACETAMINOPHEN 10 MG/325 MG TAB PO PRN (21:06)
[2016-08-07] MEDS: ATORVASTATIN 10 MG TAB PO SCH (21:07)
[2016-08-07] MEDS: RAMIPRIL 5 MG CAP PO SCH (21:07)
[2016-08-07] MEDS: LACTULOSE SYRUP 20 GM/30 ML CUP PO SCH (21:07)
[2016-08-07] MEDS: CHOLECALCIFEROL (VIT D3) 1000 UNIT TAB PO SCH (21:07)
[2016-08-08] VITALS (13 sets, daily range): BP systolic 151–214; BP diastolic 68–95; PULSE 86–103; RESP 20–24; TEMP 96.3–98.5; O2SAT 92–98
[2016-08-08] MEDS: GABAPENTIN 100 MG CAP PO SCH ×3 (01:09→15:22)
[2016-08-08] MEDS: ACETAMINOPHEN 325 MG TAB PO PRN (01:10)
[2016-08-08] MEDS: oxyCODONE/ACETAMINOPHEN 10 MG/325 MG TAB PO PRN ×4 (03:36→21:38)
[2016-08-08] MEDS: SODIUM CHLOR 0.9% 1000 ML INJ 1,000 ML IV SCH ×2 (03:41→10:51)
[2016-08-08] MEDS: VANCOMYCIN INJ 1,500 MG in SODIUM CHLORID 0.9% 500 ML INJ 500 ML IV SCH (06:29)
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
[2016-08-08 08:22] LABS: AUTOMATED NEUTROPHIL # 10.3 TH/MM3 (1.8-7.7); BASOPHIL % 0.4 % (0.0-2.0); EOSINOPHIL # 0.4 TH/MM3 (0-0.4); EOSINOPHIL % 3.4 % (0.0-4.0); HEMATOCRIT 35.8 % (39.0-51.0); HEMO FLAGS DIFF FINAL; LYMPHOCYTE # 1.1 TH/MM3 (1.0-4.8); MEAN CELL VOLUME 87.5 FL (80.0-100.0); MEAN CORPUSCULAR HEMOGLOBIN 29.1 PG (27.0-34.0); MEAN CORPUSCULAR HGB CONC 33.3 % (32.0-36.0); MONO % 5.5 % (0.0-8.0); NEUT % 81.7 % (16.0-70.0); PLATELET COUNT 302 TH/MM3 (150-450); RED BLOOD COUNT 4.09 MIL/MM3 (4.50-5.90); RED CELL DISTRIBUTION WIDTH 15.9 % (11.6-17.2); WHITE BLOOD COUNT 12.6 TH/MM3 (4.0-11.0)
[2016-08-08] MEDS: INSULIN DETEMIR 100 UNITS/ML VIAL SQ SCH (09:00)
[2016-08-08] MEDS ORDERED: PNEUMOCOCCAL POLYVALENT INJ 25 MCG/0.5 ML SYR IM ONE (09:00)
[2016-08-08] MEDS: LACTULOSE SYRUP 20 GM/30 ML CUP PO SCH ×2 (09:00→21:34)
[2016-08-08] MEDS: SODIUM CHLORIDE 0.9% FLUSH 10 ML FLUSH IV FLUSH SCH ×2 (09:00→21:36)
[2016-08-08] MEDS: NADOLOL 40 MG TAB PO SCH (09:28)
[2016-08-08] MEDS: hydrALAZINE HCL 10 MG TAB PO PRN ×2 (09:28→18:00)
[2016-08-08] MEDS: DOCUSATE SODIUM 50 MG/SENNA 8.6 MG TAB PO SCH ×2 (09:28→21:00)
[2016-08-08] MEDS: RAMIPRIL 5 MG CAP PO SCH ×2 (09:28→21:36)
[2016-08-08] MEDS: HEPARIN SODIUM - SQ 10,000 UNITS/ML VIAL SQ SCH ×2 (09:29→21:35)
[2016-08-08] MEDS: ERTAPENEM INJ 1,000 MG in SODIUM CHLORIDE 0.9% INJ 100 ML IV SCH (09:30)
[2016-08-08] MEDS ORDERED: hydrALAZINE HCL 20 MG/ML VIAL IV PUSH PRN (10:45)
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
[2016-08-08 11:20] LABS: BICARBONATE 14.6 MEQ/L (21.0-32.0)
[2016-08-08 11:21] LABS: POTASSIUM 4.5 MEQ/L (3.5-5.1)
--- NOTE | 2016-08-08 12:09 | EKG ---
Date Performed: 08/07/2016 Time Performed: 09:42:49 PTAGE: 76 years EKG: SINUS TACHYCARDIA WITH OCCASIONAL SUPRAVENTRICULAR PREMATURE COMPLEXES ST DEVIATION AND MOD ERATE T-WAVE ABNORMALITY, CONSIDER ANTEROLATERAL ISCHEMIA ST DEVIATION AND MODERATE T-WAVE ABNORMALIT Y, CONSIDER INFERIOR ISCHEMIA ABNORMAL ECG PREVIOUS TRACING : 05/29/2016 02.31 Compared to prior tracing no significant change DOCTOR: Bebeto Heller Interpretating Date/Time 08/08/2016 12:08:31
[2016-08-08] MEDS ORDERED: diphenhydrAMINE HCL 2%/ZINC ACETATE 0.1% CREAM 30 APPLIC/30 GM TUBE TOPICAL PRN (12:15)
[2016-08-08] MEDS ORDERED: diphenhydrAMINE HCL 25 MG CAP PO PRN (12:15)
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
[2016-08-08] MEDS: cloNIDine HCL 0.1 MG TAB PO PRN (18:59)
[2016-08-08] MEDS ORDERED: cloNIDine HCL 0.3 MG/24 HR PATCH T-DERMAL SCH (21:00)
[2016-08-08] MEDS: LACTULOSE SYRUP 20 GM/30 ML CUP PO PRN (21:34)
[2016-08-08] MEDS: MELATONIN 5 MG TAB PO SCH (21:35)
[2016-08-08] MEDS: ATORVASTATIN 10 MG TAB PO SCH (21:36)
[2016-08-08] MEDS: CHOLECALCIFEROL (VIT D3) 1000 UNIT TAB PO SCH (21:36)
[2016-08-09] MEDS: GABAPENTIN 100 MG CAP PO SCH ×3 (00:22→18:45)
[2016-08-09] MEDS: hydrALAZINE HCL 10 MG TAB PO PRN (00:34)
[2016-08-09] MEDS: oxyCODONE/ACETAMINOPHEN 10 MG/325 MG TAB PO PRN ×3 (03:55→18:45)
[2016-08-09 04:00] VITALS: BP 180/70; PULSE 100; RESP 20; TEMP 97.2; O2SAT 95
[2016-08-09] MEDS: VANCOMYCIN INJ 1,500 MG in SODIUM CHLORID 0.9% 500 ML INJ 500 ML IV SCH (06:27)
[2016-08-09] MEDS: cloNIDine HCL 0.1 MG TAB PO PRN (06:27)
[2016-08-09 08:25] VITALS: BP 181/91; PULSE 99; RESP 18; TEMP 96.9; O2SAT 94
[2016-08-09] MEDS: LACTULOSE SYRUP 20 GM/30 ML CUP PO SCH (09:02)
[2016-08-09] MEDS: DOCUSATE SODIUM 50 MG/SENNA 8.6 MG TAB PO SCH ×2 (09:02→21:00)
[2016-08-09] MEDS: NADOLOL 40 MG TAB PO SCH (09:03)
[2016-08-09] MEDS: HEPARIN SODIUM - SQ 10,000 UNITS/ML VIAL SQ SCH ×2 (09:04→21:21)
[2016-08-09] MEDS: ERTAPENEM INJ 1,000 MG in SODIUM CHLORIDE 0.9% INJ 100 ML IV SCH (09:05)
[2016-08-09] MEDS: SODIUM CHLORIDE 0.9% FLUSH 10 ML FLUSH IV FLUSH SCH ×2 (09:05→21:18)
[2016-08-09] MEDS: RAMIPRIL 5 MG CAP PO SCH ×2 (09:05→22:25)
[2016-08-09] MEDS: INSULIN DETEMIR 100 UNITS/ML VIAL SQ SCH (09:07)
[2016-08-09 10:20] VITALS: PULSE 95
[2016-08-09 12:19] LABS: AUTOMATED NEUTROPHIL # 6.1 TH/MM3 (1.8-7.7); BASOPHIL % 0.2 % (0.0-2.0); EOSINOPHIL # 0.3 TH/MM3 (0-0.4); EOSINOPHIL % 3.8 % (0.0-4.0); HEMATOCRIT 43.1 % (39.0-51.0); HEMO FLAGS DIFF FINAL; LYMPH % 14.8 % (9.0-44.0); LYMPHOCYTE # 1.2 TH/MM3 (1.0-4.8); MEAN CELL VOLUME 89.5 FL (80.0-100.0); MEAN CORPUSCULAR HEMOGLOBIN 28.2 PG (27.0-34.0); MEAN CORPUSCULAR HGB CONC 31.6 % (32.0-36.0); MONO % 8.7 % (0.0-8.0); NEUT % 72.5 % (16.0-70.0); PLATELET COUNT 191 TH/MM3 (150-450); RED BLOOD COUNT 4.82 MIL/MM3 (4.50-5.90); RED CELL DISTRIBUTION WIDTH 15.4 % (11.6-17.2); WHITE BLOOD COUNT 8.3 TH/MM3 (4.0-11.0)
[2016-08-09 12:27] LABS: BICARBONATE 24.1 MEQ/L (21.0-32.0); POTASSIUM 3.7 MEQ/L (3.5-5.1)
--- NOTE | 2016-08-09 13:18 | HHI.FF ---
Infusion Therapy Location of Infusion Therapy: [facility] IV Infusion Order Patient Information Patient Weight 76 kg Diagnosis: Coded Allergies: Zosyn (Verified Allergy, Mild, Rash, 05/28/16) Septra (Verified Adverse Reaction, Intermediate, 05/28/16) SEVERE N&V *MDRO Multi-Drug Resistant Organism (Verified Adverse Reaction, Unknown, ) ESBL E. coli (urine)-05/31/16, 06/07/16 Administer Medication Ertapenem 1 gram IV q 24 hours Start Treatment: Aug 09, 2016 Stop Treatment: Aug 20, 2016 Additional Information Venous access: PICC Line Additional Instructions [x] Peripheral flush and dressing changes per protocol [x] Implanted port and central line maintainer section: * Implanted port: 10 ml Normal Saline followed by 5 ml Heparin 100 units/ml Heparin flush after each use and monthly to maintain. [] May leave port accessed during therapy. [] May leave peripheral site accessed for duration of therapy. [x] If patient has SOB or respiratory distress, check oxygen saturation. If less than 90% or clinical signs of respiratory distress, administer oxygen at 2 L/min. via nasal cannula and notify physician. [x] Anaphylaxis/Reaction orders: * Stop infusion. * Keep IV line open with saline flush. * Notify physician. * Monitor vital signs every 15 minutes until symptoms resolve. * Check Oxygen saturation; Oxygen at 2 L/min. via nasal cannula if less than 90% or clinical signs of respiratory distress. * Administer diphenhydramine (Benadryl) 25 mg IV STAT, (unless patient has received as pre-med). May repeat once, if necessary. * Solu-Cortef 250 mg IVP over 30-60 seconds, use 100 mg vials for each dissolution. * Epinephrine (1mg/1 ml) 0.3 mg subcutaneously or IVP now with any signs of respiratory distress. * Check with physician for new additional pre-med orders if patient is re- challenged or re-treated. [x] May remove PICC line when treatment complete, after confirming with Physician. [x] If the patient is admitted to the hospital, the ED, or transferred via [facility] , complete transfer form including medication reconciliation order sheet. Laboratory Tests Weekly Labs: CBC w/diff, Creatinine Wilma Hudson MD Aug 09, 2016 13:17
[2016-08-09] MEDS ORDERED: INVA1INJ IV (13:49)
[2016-08-09] MEDS ORDERED: SOLU250I IV PUSH (13:49)
[2016-08-09] MEDS ORDERED: EPIN1INJ21 SQ (13:49)
[2016-08-09] MEDS ORDERED: EPIN1INJ21 IV PUSH (13:49)
[2016-08-09 13:54] VITALS: BP 154/71; PULSE 82; RESP 18; TEMP 96.7; O2SAT 97
--- NOTE | 2016-08-09 15:41 | HHI.PR ---
Subjective Subjective Remarks feels better somewhat anxious, wants to be repositioned in bed was out of bed to chair mild leg swelling rash improving no cp no sob no fever anxious to go home no family at bsd Review of Systems Constitutional Constitutional Remarks 12 point review of systems completed, negative except as noted above Vitals/Results Intake & Output 08/08/16 08/08/16 08/09/16 15:00 23:00 07:00 Intake Total 1701 ml Output Total 500 ml 1050 ml 1350 ml Balance 1201 ml -1050 ml -1350 ml IV Total 1701 ml Output Urine Total 500 ml 1050 ml 1350 ml # Voids 1 # Bowel Movements 2 0 Vital Signs Vital Signs Date Time Temp Pulse Resp B/P Pulse Ox O2 Delivery O2 Flow Rate FiO2 08/09/16 13:54 96.7 82 18 154/71 97 08/09/16 10:20 95 08/09/16 08:25 96.9 99 18 181/91 94 08/09/16 04:00 97.2 100 20 180/70 95 08/08/16 22:45 98.1 97 20 167/72 92 08/08/16 20:00 97.3 103 24 214/88 95 08/08/16 19:42 202/88 08/08/16 18:59 209/89 08/08/16 18:30 200/95 08/08/16 18:15 195/80 08/08/16 18:10 190/90 08/08/16 16:22 97.8 100 20 96 CBC/BMP: 08/09/16 1155 08/09/16 1155 Lab Results Laboratory Tests Test 08/09/16 11:55 White Blood Count 8.3 TH/MM3 Red Blood Count 4.82 MIL/MM3 Hemoglobin 13.6 GM/DL Hematocrit 43.1 % Mean Corpuscular Volume 89.5 FL Mean Corpuscular Hemoglobin 28.2 PG Mean Corpuscular Hemoglobin 31.6 % Concent Red Cell Distribution Width 15.4 % Platelet Count 191 TH/MM3 Mean Platelet Volume 7.9 FL Neutrophils (%) (Auto) 72.5 % Lymphocytes (%) (Auto) 14.8 % Monocytes (%) (Auto) 8.7 % Eosinophils (%) (Auto) 3.8 % Basophils (%) (Auto) 0.2 % Neutrophils # (Auto) 6.1 TH/MM3 Lymphocytes # (Auto) 1.2 TH/MM3 Monocytes # (Auto) 0.7 TH/MM3 Eosinophils # (Auto) 0.3 TH/MM3 Basophils # (Auto) 0.0 TH/MM3 CBC Comment DIFF FINAL Differential Comment Sodium Level 139 MEQ/L Potassium Level 3.7 MEQ/L Chloride Level 107 MEQ/L Carbon Dioxide Level 24.1 MEQ/L Anion Gap 8 MEQ/L Blood Urea Nitrogen 10 MG/DL Creatinine 0.54 MG/DL Estimat Glomerular Filtration 148 ML/MIN Rate Random Glucose 127 MG/DL Calcium Level 8.0 MG/DL Physical Exam General General Appearance: Well Developed, Well Nourished, No Acute Distress, Comfortable Eyes Eye Exam: Pupils Equal, Pupils Reactive Ears & Nose Ears & Nose Exam: Nasal Mucosa [place] Throat Throat Exam: Oral Mucosa [place] & Moist Neck Neck Exam: Neck Supple, Trachea Midline Pulmonary Resp Exam: Breath Sounds Equal, No Distress Cardiology CV Exam: Regular, Good Perfusion Gastrointestinal/Abdomen GI Exam: Soft, Non-Tender, Bowel Sounds Present, Non-Distended Musculoskeletal MS Exam: Joints Intact Integumentary Skin Exam: Warm, Dry Extremeties Extremities Exam: Pedal Pulses Palpable, Trace Edema Neurologic Neuro Exam: Alert, Awake, Oriented, Speech Clear, Moving All Extremities, No Focal Deficits Psychiatric Psych Exam: Appropriate Responses VTE Prophylaxis VTE Prophylaxis Meds: Heparin Assessment/Plan Assessment/Plan 1. Sepsis, recent ESBL in the urine, also with bilateral lower extremity cellulitis 2. Leukocytosis. 3. Anemia - mild. 4. Mild hyperglycemia. 5. Mild protein calorie malnutrition. 6. Diabetes mellitus type 2 mildly uncontrolled. 7. Altered mental status probably secondary to the urinary tract infection. 8. Cellulitis lower extremities. 9. Degenerative disc disease. 10. Debility. 11. History of CVA 12. Hypertension uncontrolled Plan: 76-year-old male patient admitted with altered mental status, positive for UTI. Recent history of ESBL in the urine. Cultures remain negative. Patient is improving, mental status is back to baseline. No fever. Weakness improved. -Appreciate infectious disease input, police is possibly recurrent UTI, possibly ESBL. Recommends to continue Ertapenem and anticipate 2 weeks. PICC line pending -Has bilateral lower extremity cellulitis which is improving. Recommends to continue vancomycin and transition to doxycycline. -Continue to monitor cultures, negative so far -Lactic acid back to normal, WBC now normal. - Patient had rash to possibly Augmentin before admit -continue to monitor closely. It is resolving. -Continue with Benadryl when necessary BP uncontrolled Continue with home medications Continue with hydralazine as needed Type 2 diabetes Accu-Cheks before meals and at bedtime with sliding scale History of CVA Continue with medical management Recent history of bilateral nondisplaced tibial plateau fractures, nonsurgical management Chronic leg wounds lower extremity Continue with physical therapy Continue with heparin for DVT prophylaxis Case management for discharge planning, will need IV antibiotics as outpatient PICC line to be placed today Possible discharge in the morning Discussed with RN Discussed with patient Discussed with Dr. Valdez This patient was seen by myself and Dr. Valdez, this note is written on her behalf Yolanda Mckeon Aug 09, 2016 15:41
[2016-08-09 15:59] VITALS: BP 162/79; PULSE 86; RESP 18; TEMP 96.7; O2SAT 95
[2016-08-09] MEDS ORDERED: GLUCAGON 1 MG/ML VIAL OTHER PRN (16:30)
[2016-08-09] MEDS ORDERED: DEXTROSE 50% IN WATER 50 ML VIAL(D50) IV PRN (16:30)
--- NOTE | 2016-08-09 17:14 | HHI.IDPN ---
Subjective Subjective Remarks doing good no complaints no fever Antibiotics ertapenem vancomycin Allergies: Coded Allergies: Zosyn (Verified Allergy, Mild, Rash, 05/28/16) Septra (Verified Adverse Reaction, Intermediate, 05/28/16) SEVERE N&V *MDRO Multi-Drug Resistant Organism (Verified Adverse Reaction, Unknown, ) ESBL E. coli (urine)-05/31/16, 06/07/16 Objective . Vital Signs Date Time Temp Pulse Resp B/P Pulse Ox O2 Delivery O2 Flow Rate FiO2 08/09/16 15:59 96.7 86 18 162/79 95 08/09/16 13:54 96.7 82 18 154/71 97 08/09/16 10:20 95 08/09/16 08:25 96.9 99 18 181/91 94 08/09/16 04:00 97.2 100 20 180/70 95 08/08/16 22:45 98.1 97 20 167/72 92 08/08/16 20:00 97.3 103 24 214/88 95 08/08/16 19:42 202/88 08/08/16 18:59 209/89 08/08/16 18:30 200/95 08/08/16 18:15 195/80 08/08/16 18:10 190/90 08/08/16 08/08/16 08/09/16 15:00 23:00 07:00 Intake Total 1701 ml Output Total 500 ml 1050 ml 1350 ml Balance 1201 ml -1050 ml -1350 ml IV Total 1701 ml Output Urine Total 500 ml 1050 ml 1350 ml # Voids 1 # Bowel Movements 2 0 . Laboratory Tests Test 08/08/16 08/09/16 07:05 11:55 White Blood Count 12.6 TH/MM3 8.3 TH/MM3 Red Blood Count 4.09 MIL/MM3 4.82 MIL/MM3 Hemoglobin 11.9 GM/DL 13.6 GM/DL Hematocrit 35.8 % 43.1 % Mean Corpuscular Volume 87.5 FL 89.5 FL Mean Corpuscular Hemoglobin 29.1 PG 28.2 PG Mean Corpuscular Hemoglobin 33.3 % 31.6 % Concent Red Cell Distribution Width 15.9 % 15.4 % Platelet Count 302 TH/MM3 191 TH/MM3 Mean Platelet Volume 9.2 FL 7.9 FL Neutrophils (%) (Auto) 81.7 % 72.5 % Lymphocytes (%) (Auto) 9.0 % 14.8 % Monocytes (%) (Auto) 5.5 % 8.7 % Eosinophils (%) (Auto) 3.4 % 3.8 % Basophils (%) (Auto) 0.4 % 0.2 % Neutrophils # (Auto) 10.3 TH/MM3 6.1 TH/MM3 Lymphocytes # (Auto) 1.1 TH/MM3 1.2 TH/MM3 Monocytes # (Auto) 0.7 TH/MM3 0.7 TH/MM3 Eosinophils # (Auto) 0.4 TH/MM3 0.3 TH/MM3 Basophils # (Auto) 0.0 TH/MM3 0.0 TH/MM3 CBC Comment DIFF FINAL DIFF FINAL Differential Comment Hematology Comments Laboratory Tests Test 08/08/16 08/09/16 10:22 11:55 Sodium Level 136 MEQ/L 139 MEQ/L Potassium Level 4.5 MEQ/L 3.7 MEQ/L Chloride Level 111 MEQ/L 107 MEQ/L Carbon Dioxide Level 14.6 MEQ/L 24.1 MEQ/L Anion Gap 10 MEQ/L 8 MEQ/L Blood Urea Nitrogen 14 MG/DL 10 MG/DL Creatinine 0.50 MG/DL 0.54 MG/DL Estimat Glomerular Filtration 161 ML/MIN 148 ML/MIN Rate Random Glucose 84 MG/DL 127 MG/DL Calcium Level 7.7 MG/DL 8.0 MG/DL Microbiology Date/Time Procedure Status Source Growth 08/07/16 09:10 Aerobic Blood Culture - Preliminary Resulted Blood Peripheral NO GROWTH IN 2 DAYS 08/07/16 09:10 Anaerobic Blood Culture - Preliminary Resulted Blood Peripheral NO GROWTH IN 2 DAYS 08/07/16 09:25 Aerobic Blood Culture - Preliminary Resulted Blood Peripheral NO GROWTH IN 2 DAYS 08/07/16 09:25 Anaerobic Blood Culture - Preliminary Resulted Blood Peripheral NO GROWTH IN 2 DAYS 08/07/16 09:30 Urine Culture - Final Complete Urine Clean Catch NO GROWTH IN 48 HOURS. Imaging Last Impressions Chest X-Ray 08/07/1615 Signed Impressions: Service Date/Time: Sunday, August 07, 2016 10:23 - CONCLUSION: No acute disease. David Zapien MD FACR Tibia/Fibula X-Ray 08/07/16 0000 Signed Impressions: Service Date/Time: Sunday, August 07, 2016 10:28 - CONCLUSION: Old proximal fibula and tibia fractures. No acute fracture identified. Charlie Jiménez MD Lumbar Spine X-Ray 08/07/16 Signed Impressions: Service Date/Time: Sunday, August 07, 2016 12:46 - CONCLUSION: Severe bony degenerative findings of the lumbar spine. Charlie Jiménez MD Hip and Pelvis X-Ray 08/07/16 Signed Impressions: Service Date/Time: Sunday, August 07, 2016 10:32 - CONCLUSION: Right total hip prosthesis. Left hip within normal limits. Charlie Jiménez MD Head CT 08/07/16 Signed Impressions: Service Date/Time: Sunday, August 07, 2016 10:52 - CONCLUSION: Negative for acute process. David Zapien MD FACR CT Angiography 08/07/16 Signed Impressions: Service Date/Time: Sunday, August 07, 2016 10:59 - CONCLUSION: 1. No evidence of pulmonary embolus. 2. 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 3. Coronary artery calcification. 4. Old granulomatous disease. Charlie Jiménez MD Physical Exam CONSTITUTIONAL/GENERAL: This is an adequately nourished patient, in no apparent distress. TUBES/LINES/DRAINS: SKIN: No jaundice, rashes, or lesions. B/l shins with clean based wounds Resolved erythema,of b/l LE Mild 1+ edema still present Skin temperature appropriate. Not diaphoretic. CARDIOVASCULAR: Regular rate and rhythm without murmurs, gallops, or rubs. N RESPIRATORY/CHEST: Symmetric, unlabored respirations. Clear to auscultation. Breath sounds equal bilaterally. GASTROINTESTINAL: Abdomen soft, non-tender, nondistended. No hepato-splenomegaly , or palpable masses. No guarding. Bowel sounds present. GENITOURINARY: Without palpable bladder distension. Beckett catheter removed MUSCULOSKELETAL: Extremities without clubbing, cyanosis, + b/l LE chronic appearing edema with wrinkling. No joint tenderness or effusion noted. No calf tenderness. No mottling or clubbing. NEUROLOGICAL: Awake and alert. Motor and sensory grossly within normal limits. Follows commands. clear speech Moves all extremities. PSYCHIATRIC: calm, cooperative Assessment & Plan Remarks Recurrent UTI, proabbly ESBL + org - underlying DM,BPH,interititial cystitis - final urine clx is negative, am/clav prior use could cause false negative clx Doubt B/L LE cellulitis, clinically more cw part of his skin reaction PCN allergic reaction - cont ertapenem, x 2 weeks -dc vancomycin for now, a - will not use doxycyclin since rapid complete resolution of rash makes allergic reaction dx more likley - OK to dc - chk urine AFB clx (pt is from [facility], high risk for TB area); clx boubacar take 6 wks to finalise, can be followed by pt's primary physician Dr Gricelda Diaz Discussed Condition With Wilma Ulloa MD Aug 09, 2016 17:14
--- NOTE | 2016-08-09 19:34 | PD.POD ---
Past Med/Surg/Social History Social History Smoking Status: Never Smoker Objective Vital Signs Vital Signs Date Time Temp Pulse Resp B/P Pulse Ox O2 Delivery O2 Flow Rate FiO2 08/09/16 15:59 96.7 86 18 162/79 95 08/09/16 13:54 96.7 82 18 154/71 97 08/09/16 10:20 95 08/09/16 08:25 96.9 99 18 181/91 94 08/09/16 04:00 97.2 100 20 180/70 95 08/08/16 22:45 98.1 97 20 167/72 92 08/08/16 20:00 97.3 103 24 214/88 95 08/08/16 19:42 202/88 Coded Allergies: Zosyn (Verified Allergy, Mild, Rash, 05/28/16) Septra (Verified Adverse Reaction, Intermediate, 05/28/16) SEVERE N&V *MDRO Multi-Drug Resistant Organism (Verified Adverse Reaction, Unknown, ) ESBL E. coli (urine)-05/31/16, 06/07/16 Assessment & Plan A/P Toe nail care not a service performed as inpatient. Follow up as outpatient in clinic with provider under insurance plan. Noel Orourke DPM Aug 09, 2016 19:34
[2016-08-09 20:00] VITALS: BP 146/67; PULSE 80; RESP 18; TEMP 96.8; O2SAT 95
[2016-08-09] MEDS: INSULIN ASPART SUPPLEMENTAL SCALE SQ SCH (21:00)
[2016-08-09] MEDS: MELATONIN 5 MG TAB PO SCH (21:19)
[2016-08-09] MEDS: ATORVASTATIN 10 MG TAB PO SCH (21:19)
[2016-08-09] MEDS: CHOLECALCIFEROL (VIT D3) 1000 UNIT TAB PO SCH (21:20)
[2016-08-10] VITALS: BP 182/83; PULSE 82; RESP 20; TEMP 96.8; O2SAT 95
[2016-08-10] MEDS: oxyCODONE/ACETAMINOPHEN 10 MG/325 MG TAB PO PRN ×3 (00:54→13:33)
[2016-08-10] MEDS: GABAPENTIN 100 MG CAP PO SCH ×2 (00:54→08:09)
[2016-08-10] MEDS ORDERED: PHARMACY ORDERED LAB ONE (05:45)
[2016-08-10 06:36] VITALS: BP 177/77; PULSE 84; RESP 20; TEMP 96; O2SAT 94
[2016-08-10] MEDS: VANCOMYCIN INJ 1,500 MG in SODIUM CHLORID 0.9% 500 ML INJ 500 ML IV SCH (06:52)
[2016-08-10 07:00] VITALS: PULSE 79
[2016-08-10] MEDS: INSULIN ASPART SUPPLEMENTAL SCALE SQ SCH ×2 (07:00→11:00)
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
[2016-08-10 08:00] VITALS: BP 187/78; PULSE 64; RESP 16; TEMP 97.2; O2SAT 98
[2016-08-10] MEDS: NADOLOL 40 MG TAB PO SCH (08:08)
[2016-08-10] MEDS: LACTULOSE SYRUP 20 GM/30 ML CUP PO SCH (08:09)
[2016-08-10] MEDS: SODIUM CHLORIDE 0.9% FLUSH 10 ML FLUSH IV FLUSH SCH (08:09)
[2016-08-10] MEDS: RAMIPRIL 5 MG CAP PO SCH (08:09)
[2016-08-10] MEDS: DOCUSATE SODIUM 50 MG/SENNA 8.6 MG TAB PO SCH (08:09)
[2016-08-10] MEDS: cloNIDine HCL 0.1 MG TAB PO PRN (08:09)
[2016-08-10] MEDS: HEPARIN SODIUM - SQ 10,000 UNITS/ML VIAL SQ SCH (08:09)
[2016-08-10] MEDS: INSULIN DETEMIR 100 UNITS/ML VIAL SQ SCH (08:11)
--- NOTE | 2016-08-10 08:44 | HHI.PR ---
Subjective Subjective Remarks no fever anxious, wants to take his Lactulose now no cp no sob eating okay at bsd rash improving Review of Systems Constitutional Constitutional Remarks 12 point review of systems completed, negative except as noted above Vitals/Results Intake & Output 08/09/16 08/09/16 08/10/16 15:00 23:00 07:00 Intake Total 360 ml Output Total 600 ml 925 ml Balance -600 ml -565 ml Intake Oral 360 ml Output Urine Total 600 ml 925 ml # Voids 1 # Bowel Movements 1 0 0 Vital Signs Vital Signs Date Time Temp Pulse Resp B/P Pulse Ox O2 Delivery O2 Flow Rate FiO2 08/10/16 08:00 97.2 64 16 187/78 98 08/10/16 07:00 79 08/10/16 06:36 96.0 84 20 177/77 94 08/10/16 00:00 96.8 82 20 182/83 95 08/09/16 20:00 96.8 80 18 146/67 95 08/09/16 15:59 96.7 86 18 162/79 95 08/09/16 13:54 96.7 82 18 154/71 97 08/09/16 10:20 95 CBC/BMP: 08/09/16 1155 08/09/16 1155 Lab Results Laboratory Tests Test 08/09/16 08/10/16 11:55 05:45 White Blood Count 8.3 TH/MM3 Red Blood Count 4.82 MIL/MM3 Hemoglobin 13.6 GM/DL Hematocrit 43.1 % Mean Corpuscular Volume 89.5 FL Mean Corpuscular Hemoglobin 28.2 PG Mean Corpuscular Hemoglobin 31.6 % Concent Red Cell Distribution Width 15.4 % Platelet Count 191 TH/MM3 Mean Platelet Volume 7.9 FL Neutrophils (%) (Auto) 72.5 % Lymphocytes (%) (Auto) 14.8 % Monocytes (%) (Auto) 8.7 % Eosinophils (%) (Auto) 3.8 % Basophils (%) (Auto) 0.2 % Neutrophils # (Auto) 6.1 TH/MM3 Lymphocytes # (Auto) 1.2 TH/MM3 Monocytes # (Auto) 0.7 TH/MM3 Eosinophils # (Auto) 0.3 TH/MM3 Basophils # (Auto) 0.0 TH/MM3 CBC Comment DIFF FINAL Differential Comment Sodium Level 139 MEQ/L Potassium Level 3.7 MEQ/L Chloride Level 107 MEQ/L Carbon Dioxide Level 24.1 MEQ/L Anion Gap 8 MEQ/L Blood Urea Nitrogen 10 MG/DL Creatinine 0.54 MG/DL Estimat Glomerular Filtration 148 ML/MIN Rate Random Glucose 127 MG/DL Calcium Level 8.0 MG/DL Vancomycin Level Trough 9.7 MCG/ML Physical Exam General General Appearance: Well Developed, Well Nourished, No Acute Distress, Comfortable Eyes Eye Exam: Pupils Equal, Pupils Reactive Ears & Nose Ears & Nose Exam: Nasal Mucosa [place] Throat Throat Exam: Oral Mucosa [place] & Moist Neck Neck Exam: Neck Supple, Trachea Midline Pulmonary Resp Exam: Breath Sounds Equal, No Distress Cardiology CV Exam: Regular, Good Perfusion Gastrointestinal/Abdomen GI Exam: Soft, Non-Tender, Bowel Sounds Present, Non-Distended Musculoskeletal MS Exam: Joints Intact Integumentary Skin Exam: Warm, Dry Extremeties Extremities Exam: Pedal Pulses Palpable, Trace Edema Neurologic Neuro Exam: Alert, Awake, Oriented, Speech Clear, Moving All Extremities, No Focal Deficits Psychiatric Psych Exam: Appropriate Responses VTE Prophylaxis VTE Prophylaxis Meds: Heparin Assessment/Plan Assessment/Plan 1. Sepsis, recent ESBL in the urine, also with bilateral lower extremity cellulitis 2. Leukocytosis. 3. Anemia - mild. 4. Mild hyperglycemia. 5. Mild protein calorie malnutrition. 6. Diabetes mellitus type 2 mildly uncontrolled. 7. Altered mental status probably secondary to the urinary tract infection. 8. Cellulitis lower extremities. 9. Degenerative disc disease. 10. Debility. 11. History of CVA 12. Hypertension uncontrolled Plan: 76-year-old male patient admitted with altered mental status, positive for UTI. Recent history of ESBL in the urine. Cultures remain negative. Patient is improving, mental status is back to baseline. No fever. Weakness improved. -Appreciate infectious disease input, police is possibly recurrent UTI, possibly ESBL. Recommends to continue Ertapenem and anticipate 2 weeks. Culture negative, per ID am/clav prior use could cause false negative clx. Vanco stopped, no Doxy required as the rash has resolved. -Per ID, chk urine AFB clx -pending. (pt is from [facility], high risk for TB area) ; clx boubacar take 6 wks to finalize, can be followed by pt's primary physician Dr Gricelda Diaz- aware -PICC has been placed. -Has bilateral lower extremity cellulitis which is improving. -Lactic acid back to normal, WBC now normal. - Patient had rash to possibly Augmentin before admit -continue to monitor closely. It is resolving. -Continue with Benadryl when necessary BP uncontrolled, partly due to anxiety Continue with home medications Continue with hydralazine as needed Type 2 diabetes Accu-Cheks before meals and at bedtime with sliding scale History of CVA Continue with medical management Recent history of bilateral nondisplaced tibial plateau fractures, nonsurgical management Chronic leg wounds lower extremity Continue with physical therapy Continue with heparin for DVT prophylaxis Case management for discharge planning, [facility] has been arranged Discharge home today with C F/U PCP, needs to follow up on urine results for AFB culture. verbalizes understanding Diet-heart healthy Activity-as tolerated Discussed with RN Discussed with patient Discussed with Dr. Valdez Discussed with CM This patient was seen by myself and Dr. Valdez, this note is written on her behalf Discharge Minutes: 45 Yolanda Mckeon Aug 10, 2016 08:44
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
[2016-08-10] MEDS: ERTAPENEM INJ 1,000 MG in SODIUM CHLORIDE 0.9% INJ 100 ML IV SCH (09:15)
[2016-08-11] MEDS ORDERED: VANCOMYCIN INJ 1,500 MG in SODIUM CHLORID 0.9% 500 ML INJ 500 ML IV SCH (01:00)
[2016-08-12] MEDS ORDERED: PHARMACY ORDERED LAB ONE (12:45)
[2016-08-15] MEDS ORDERED: REMOVE OLD CATAPRES (CLONIDINE) PATCH T-DERMAL SCH (21:00)
== END 2016-08-10 14:21 | disposition home health service (06) | DRG 872 ==
LOC: NEPC 09:10 → NEDA 14:07 → N05A 18:27
PROVIDERS: ADMIT Internal Medicine; ATTEND Internal Medicine
DX: A41.9 Sepsis, unspecified organism (principal); E11.65 Type 2 diabetes mellitus with hyperglycemia; N39.0 Urinary tract infection, site not specified; E44.1 Mild protein-calorie malnutrition; L03.115 Cellulitis of right lower limb; L03.116 Cellulitis of left lower limb; R65.20 Severe sepsis without septic shock; I10 Essential (primary) hypertension; Z86.73 Personal history of transient ischemic attack (TIA), and cerebral infarction without residual deficits; M19.90 Unspecified osteoarthritis, unspecified site; Z96.642 Presence of left artificial hip joint; E78.5 Hyperlipidemia, unspecified; R53.81 Other malaise; Z16.24 Resistance to multiple antibiotics; D63.8 Anemia in other chronic diseases classified elsewhere; N40.0 Benign prostatic hyperplasia without lower urinary tract symptoms; T36.0X5A Adverse effect of penicillins, initial encounter; K58.9 Irritable bowel syndrome, unspecified; G89.29 Other chronic pain; B96.89 Other specified bacterial agents as the cause of diseases classified elsewhere; S82.145D Nondisplaced bicondylar fracture of left tibia, subsequent encounter for closed fracture with routine healing; S82.144D Nondisplaced bicondylar fracture of right tibia, subsequent encounter for closed fracture with routine healing; L27.0 Generalized skin eruption due to drugs and medicaments taken internally; M54.5 Low back pain; Z79.4 Long term (current) use of insulin
CPT/HCPCS: 36569; 51702; 70450; 71010; 71275; 72100; 73501; 73590; 76937; 80048; 80053; 80202; 81001; 82550; 82805; 82948; 83605; 83690; 83735; 84100; 84443; 84484; 85007; 85025; 85027; 85610; 85730; 87040; 87086; 93005; 96365; 96375; J1170; J1335; J1644; J2270; J3370; J7030; J7040; J7050; Q9967

== ENCOUNTER 2016-08-16 10:52 | Day surgery (SDC) | payer MEDICARE ==
[~2016-08-16 10:52] MED LIST changes: +EPIN1INJ21 IV PUSH; +EPIN1INJ21 SQ; +HYDR-3798 PO; -HYDR10TA23 PO; +INVA1INJ IV; -OXYC1TAB63 PO; -RAMI10CA PO; +SOLU250I IV PUSH; -TRANSFER BENCH1 MIS; +VITA100018 PO; -WHEEMIS3; -XARE10TA PO; -commode
[2016-08-16 11:11] VITALS: BP 214/87; PULSE 83; RESP 20; TEMP 98.5; O2SAT 98
[2016-08-16] MEDS ORDERED: INVA1INJ IV (11:28)
[2016-08-16 12:45] VITALS: BP 195/83; PULSE 93; RESP 20; TEMP 98.4; O2SAT 97
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
== END 2016-08-16 13:15 | disposition home or self-care (01) ==
LOC: HROP 10:52 → HRIP 10:56 → HROP 13:15
PROVIDERS: ATTEND Internal Medicine Infectious Disease
DX: N39.0 Urinary tract infection, site not specified (principal); I10 Essential (primary) hypertension; K58.9 Irritable bowel syndrome, unspecified; I25.10 Atherosclerotic heart disease of native coronary artery without angina pectoris; Z86.73 Personal history of transient ischemic attack (TIA), and cerebral infarction without residual deficits
CPT/HCPCS: 36584; 77001; C1751; J1642

== ENCOUNTER 2016-10-19 08:47 | Inpatient (IN) | payer MEDICARE ==
[~2016-10-19] VITALS: Ht 170.2 cm; Wt 70.0 kg
[2016-10-19] VITALS (11 sets, daily range): BP systolic 138–256; BP diastolic 64–119; PULSE 68–88; RESP 18–20; TEMP 97.6–98.5; O2SAT 95–98
[2016-10-19] MEDS ORDERED: SODIUM CHLORIDE 0.9% FLUSH 10 ML FLUSH IVF PRN (09:15)
[2016-10-19] MEDS ORDERED: hydrALAZINE HCL 20 MG/ML VIAL IV PUSH ONE (09:15)
--- NOTE | 2016-10-19 09:18 | PD ---
HPI Chief Complaint: Hypertension Time Seen by Provider: 09:13 Travel History International Travel<30 days: No Contact w/Intl Traveler<30days: No Traveled to known affect area: No History of Present Illness HPI This is a 76-year-old male history of hypertension, interstitial cystitis, who presents today with complaints of uncontrolled hypertension. The patient was seen by Dr. Lane last week, who took him off his clonidine patch and started him on hydralazine. He was then seen by his primary care physician who started him on a new medication. He states that he woke up this morning with continued elevated blood pressure. He states he feels groggy. He denies any head pain or neck pain. There is no chest pain or chest pressure. The patient does urinate frequently which is not new. PFSH Past Medical History Arthritis: No Asthma: No Autoimmune Disease: No Anxiety: No Depression: No Heart Rhythm Problems: No Cancer: No Cardiovascular Problems: Yes High Cholesterol: No Chemotherapy: No Chest Pain: No Congestive Heart Failure: No COPD: No Cerebrovascular Accident: No Diabetes: Yes Patient Takes Glucophage: No Diminished Hearing: No Endocrine: No Gastrointestinal Disorders: Yes (chronic constipation) GERD: No Glaucoma: No Genitourinary: Yes (enlarged prostate, wood for urine retention) Hepatitis: No Hiatal Hernia: No Immune Disorder: No Implanted Vascular Access Dvce: Yes Kidney Stones: No Musculoskeletal: Yes (weak and tired) Neurologic: Yes (legs swollen and reddened and painful) Psychiatric: No Reproductive: No Respiratory: No Migraines: No Radiation Therapy: No Renal Failure: No Seizures: No Sickle Cell Disease: No Sleep Apnea: No Thyroid Disease: No Ulcer: No Past Surgical History Abdominal Surgery: No AICD: No Arteriovenous Shunt: No Cardiac Surgery: No Endocrine Surgery: No Eye Surgery: No Genitourinary Surgery: No Gynecologic Surgery: No Insulin Pump: No Joint Replacement: No Oral Surgery: No Pacemaker: No Thoracic Surgery: No Social History Alcohol Use: No Tobacco Use: No Substance Use: No Allergies-Medications (Allergen,Severity, Reaction): Coded Allergies: Penicillin (Verified Allergy, Severe, Nausea/Vomiting, HIVES, 09/11/16) Zosyn (Verified Allergy, Mild, Rash, 09/11/16) Septra (Verified Adverse Reaction, Intermediate, 09/11/16) SEVERE N&V *MDRO Multi-Drug Resistant Organism (Verified Adverse Reaction, Unknown, ) ESBL E. coli (urine)-05/31/16, 06/07/16 Reported Meds & Prescriptions Reported Meds & Active Scripts Active Melatonin 5 Mg Tab 5 Mg PO HS 30 Days Gabapentin 100 Mg Cap 200 Mg PO Q8H 30 Days Lipitor (Atorvastatin Calcium) 10 Mg Tab 10 Mg PO HS Percocet (Oxycodone-Acetaminophen) 10-325 mg Tab 1 Tab PO Q6H PRN Clonidine 168 HR Patch (Clonidine HCl) 0.3 Mg/24 Hr Patch 1 Patch T-DERMAL Q7D Nadolol 40 Mg Tab 40 Mg PO DAILY Reported Aspirin 325 Mg Tab 325 Mg PO DAILY Clonidine (Clonidine HCl) 0.1 Mg Tab 0.1 Mg PO BID PRN Clonidine (Clonidine HCl) 0.1 Mg Tab 0.1 Mg PO BID Clonidine (Clonidine HCl) 0.3 Mg Tab 0.3 Mg PO BID Nitro-Dur Patch 24 HR (Nitroglycerin) 0.6 Mg/Hr Patch 0.6 Mg T-DERMAL DAILY PRN Hydralazine HCl 50 Mg Tablet BID Entresto (Sacubitril-Valsartan) 24-26 Mg Tab 1 Tab PO BID Vitamin D3 (Cholecalciferol) 1,000 Unit Tab 1,000 Units PO HS Novolog Inj (Insulin Aspart) 1,000 Unit/10 Ml Vial 0 SQ DIRECTED Sliding Scale as directed. Toujeo Solostar Pen Inj (Insulin Glargine) 300 Unit/Ml Pen 10 Units SQ DAILY Review of Systems Except as stated in HPI: all other systems reviewed are Neg General / Constitutional: No: Fever, Chills Eyes: No: Blurred Vision, Photophobia HENT: No: Headaches, Lightheadedness Cardiovascular: No: Chest Pain or Discomfort, Palpitations Respiratory: No: Cough, Shortness of Breath Gastrointestinal: No: Nausea, Vomiting Genitourinary: Positive: Frequency, No: Dysuria Musculoskeletal: No: Weakness, Pain Neurologic: Positive: Other (patient reports feeling "groggy".), No: Weakness , Dizziness, Headache, Change in Mentation Physical Exam Narrative GENERAL: Well-developed well-nourished male in no acute respiratory distress. SKIN: Focused skin assessment warm/dry. HEAD: Atraumatic. Normocephalic. EYES:No scleral icterus. No injection or drainage. ENT: No nasal bleeding or discharge. Mucous membranes pink and moist. NECK: Trachea midline. No JVD. CARDIOVASCULAR: Regular rate and rhythm. No murmur appreciated. RESPIRATORY: No accessory muscle use. Clear to auscultation. Breath sounds equal bilaterally. GASTROINTESTINAL: Abdomen soft, non-tender, nondistended. No pulsatile masses. MUSCULOSKELETAL: No obvious deformities. No clubbing. No cyanosis. No edema. Patient has skin changes to his bilateral lower extremities which is secondary to an old injury. NEUROLOGICAL: Awake and alert. No obvious cranial nerve deficits. Motor grossly within normal limits. Normal speech. PSYCHIATRIC: Appropriate mood and affect; insight and judgment normal. Data Data Last Documented VS Vital Signs Date Time Temp Pulse Resp B/P Pulse Ox O2 Delivery O2 Flow Rate FiO2 10/19/16 10:10 173/100 10/19/16 09:59 98 Room Air 10/19/16 09:59 76 10/19/16 09:02 98.5 18 Orders Electrocardiogram (10/19/16 09:14) Ckmb (Isoenzyme) Profile (10/19/16 09:14) Complete Blood Count With Diff (10/19/16 09:14) Comprehensive Metabolic Panel (10/19/16 09:14) Magnesium (Mg) (10/19/16 09:14) Prothrombin Time / Inr (Pt) (10/19/16 09:14) Act Partial Throm Time (Ptt) (10/19/16 09:14) Troponin I (10/19/16 09:14) Chest, Single Ap (10/19/16 09:14) Ecg Monitoring (10/19/16 09:14) Bilateral Bp Monitoring (10/19/16 09:14) Iv Access Insert/Monitor (10/19/16 09:14) Oximetry (10/19/16 09:14) Oxygen Administration (10/19/16 09:14) Sodium Chloride 0.9% Flush (Ns Flush) (10/19/16 09:15) Hydralazine Inj (Apresoline Inj) (10/19/16 09:15) Admit Order (Ed Use Only) (10/19/16 10:47) Labs Laboratory Tests Test 10/19/16 09:30 White Blood Count 8.8 TH/MM3 Red Blood Count 4.85 MIL/MM3 Hemoglobin 14.2 GM/DL Hematocrit 42.3 % Mean Corpuscular Volume 87.2 FL Mean Corpuscular Hemoglobin 29.3 PG Mean Corpuscular Hemoglobin 33.6 % Concent Red Cell Distribution Width 15.8 % Platelet Count 332 TH/MM3 Mean Platelet Volume 7.4 FL Neutrophils (%) (Auto) 62.7 % Lymphocytes (%) (Auto) 24.0 % Monocytes (%) (Auto) 8.4 % Eosinophils (%) (Auto) 4.0 % Basophils (%) (Auto) 0.9 % Neutrophils # (Auto) 5.5 TH/MM3 Lymphocytes # (Auto) 2.1 TH/MM3 Monocytes # (Auto) 0.7 TH/MM3 Eosinophils # (Auto) 0.3 TH/MM3 Basophils # (Auto) 0.1 TH/MM3 CBC Comment DIFF FINAL Differential Comment Prothrombin Time 10.3 SEC Prothromb Time International 0.9 RATIO Ratio Activated Partial 28.4 SEC Thromboplast Time Sodium Level 134 MEQ/L Potassium Level 4.0 MEQ/L Chloride Level 98 MEQ/L Carbon Dioxide Level 27.9 MEQ/L Anion Gap 8 MEQ/L Blood Urea Nitrogen 10 MG/DL Creatinine 0.80 MG/DL Estimat Glomerular Filtration 94 ML/MIN Rate Random Glucose 209 MG/DL Calcium Level 8.7 MG/DL Magnesium Level 2.1 MG/DL Total Bilirubin 0.6 MG/DL Aspartate Amino Transf 17 U/L (AST/SGOT) Alanine Aminotransferase 18 U/L (ALT/SGPT) Alkaline Phosphatase 107 U/L Total Creatine Kinase 48 U/L Troponin I 0.07 NG/ML Total Protein 7.5 GM/DL Albumin 3.6 GM/DL [facility] Medical Decision Making Medical Screen Exam Complete: Yes Emergency Medical Condition: Yes Differential Diagnosis Hypertensive urgency versus non-STEMI versus metabolic arrangement Narrative Course 76-year-old male with a history of hypertension, presents today with complaints of elevated blood pressure. Patient was noted to have a blood pressure of 245/ 120. The patient already had 8.3 mg clonidine patch Diagnosis Primary Impression: Hypertensive urgency Additional Impressions: Elevated troponin I level Hyperglycemia Admitting Information Admitting Physician Requests: Admit Eran Samson MD Oct 19, 2016 09:18
[2016-10-19] MEDS ORDERED: CLON0.1T PO (09:22)
[2016-10-19] MEDS ORDERED: NITR0.6D T-DERMAL (09:22)
[2016-10-19] MEDS ORDERED: CLON0.3T PO (09:22)
[2016-10-19] MEDS ORDERED: SACU1TAB PO (09:22)
[2016-10-19] MEDS ORDERED: HYDR-3800 (09:22)
[2016-10-19] MEDS ORDERED: ASPI325T PO (09:30)
[2016-10-19 09:42] LABS: AUTOMATED NEUTROPHIL # 5.5 TH/MM3 (1.8-7.7); BASOPHIL # 0.1 TH/MM3 (0-0.2); BASOPHIL % 0.9 % (0.0-2.0); EOSINOPHIL # 0.3 TH/MM3 (0-0.4); HEMATOCRIT 42.3 % (39.0-51.0); LYMPHOCYTE # 2.1 TH/MM3 (1.0-4.8); MEAN CELL VOLUME 87.2 FL (80.0-100.0); MEAN CORPUSCULAR HEMOGLOBIN 29.3 PG (27.0-34.0); MEAN CORPUSCULAR HGB CONC 33.6 % (32.0-36.0); MONO % 8.4 % (0.0-8.0); NEUT % 62.7 % (16.0-70.0); PLATELET COUNT 332 TH/MM3 (150-450); RED BLOOD COUNT 4.85 MIL/MM3 (4.50-5.90); RED CELL DISTRIBUTION WIDTH 15.8 % (11.6-17.2); WHITE BLOOD COUNT 8.8 TH/MM3 (4.0-11.0)
[2016-10-19 09:44] LABS: HEMO FLAGS DIFF FINAL
[2016-10-19 09:46] LABS: APTT (PATIENT) 28.4 SEC (24.3-30.1); INTERNATIONAL NORMALIZED RATIO 0.9 RATIO; PROTHROMBIN TIME - PATIENT 10.3 SEC (9.8-11.6)
--- NOTE | 2016-10-19 09:48 | RADRPT ---
EXAM DATE/TIME: 10/19/2016 09:18 [facility] COMPARISON: CHEST SINGLE AP, August 07, 2016, 10:23. INDICATIONS : Chest Pain MEDICAL HISTORY : Cardiovascular disease. Cerebrovascular disease. Hypertension. SURGICAL HISTORY : Discectomy, lumbar. Prostate Surgery, TURP, Left hip ORIF, and Thyroid Surgery ENCOUNTER: Initial ACUITY: 1 day PAIN SCORE: 6/10 LOCATION: Bilateral chest FINDINGS: A single view of the chest demonstrates the lungs to be symmetrically aerated without evidence of mas s, infiltrate or effusion. The cardiomediastinal contours are unremarkable. Atherosclerotic calcifi cations are present in the aorta. Osseous structures are intact. CONCLUSION: No acute disease. Donald Crabtree MD on October 19, 2016 at 9:46 Board Certified Radiologist. This report was verified electronically.
[2016-10-19 09:52] LABS: ANION GAP 8 MEQ/L (5-15); AST (GOT) 17 U/L (15-37); BICARBONATE 27.9 MEQ/L (21.0-32.0); BLOOD UREA NITROGEN 10 MG/DL (7-18); CHLORIDE 98 MEQ/L (98-107); GLOMERULAR FILTRATION RATE 94 ML/MIN (>89); MAGNESIUM 2.1 MG/DL (1.5-2.5); SODIUM (NA) 134 MEQ/L (136-145)
[2016-10-19 09:53] LABS: ALT (GPT) 18 U/L (12-78)
[2016-10-19 09:57] LABS: ALKALINE PHOSPHATASE 107 U/L (45-117); TOTAL BILIRUBIN ADULT 0.6 MG/DL (0.2-1.0)
[2016-10-19 10:00] LABS: CREATINE KINASE 48 U/L (39-308)
[2016-10-19] MEDS ORDERED: cloNIDine HCL 0.1 MG TAB PO PRN (11:30)
[2016-10-19] MEDS ORDERED: ONDANSETRON HCL 4 MG/2 ML VIAL IVP PRN (11:30)
[2016-10-19] MEDS ORDERED: ENALAPRILAT 2.5 MG/2 ML VIAL IV PUSH PRN (11:30)
[2016-10-19] MEDS ORDERED: SENNOSIDES 8.6 MG TAB PO PRN (11:30)
[2016-10-19] MEDS ORDERED: NALOXONE HCL 0.4 MG/ML AMP IV PRN (11:30)
[2016-10-19] MEDS ORDERED: LACTULOSE SYRUP 20 GM/30 ML CUP PO PRN (11:30)
[2016-10-19] MEDS ORDERED: MAGNESIUM HYDROXIDE SUSP 30 ML CUP PO PRN (11:30)
[2016-10-19] MEDS ORDERED: SODIUM CHLORIDE 0.9% FLUSH 10 ML FLUSH IV FLUSH PRN (11:30)
[2016-10-19] MEDS ORDERED: BISACODYL 10 MG SUPP RECTAL PRN (11:30)
--- NOTE | 2016-10-19 12:47 | HP.UPD ---
H&P Update Note This is a very pleasant 76-year-old Indonesian gentleman with a history of diabetes , hypertension, lumbar discectomy, peripheral neuropathy, constipation, prostate enlargement, frequent urination, irritable bowel syndrome and subdural hematoma. He has had problems with blood pressure control recently. His primary loading dock hand took him off his clonidine patch and put him on clonidine pills. He has since had wide swings of blood pressure. This morning his blood pressure was 250-260 systolic. He came into the emergency department at [facility]. He was seen by the undersigned in room C26 in the presence of his . He looks extremely anxious. However he denies feeling anxious. Hydralazine in the emergency pressure. The admitted for further management with a consult to cardiology. Nifedipine extended release 60 mg has been started now. We will discuss further with his loading dock hand regarding the need to rule out secondary hypertension such as renal artery stenosis. Full history and physical to follow Reese Cm MD Oct 19, 2016 12:44
[2016-10-19] MEDS ORDERED: cloNIDine HCL 0.3 MG/24 HR PATCH T-DERMAL SCH (13:00)
[2016-10-19] MEDS: HEPARIN SODIUM - SQ 10,000 UNITS/ML VIAL SQ SCH ×2 (13:06→23:23)
[2016-10-19] MEDS: NIFEdipine 60 MG SUSTAINED RELEASE TAB PO SCH (13:58)
[2016-10-19] MEDS: GABAPENTIN 100 MG CAP PO SCH ×2 (13:58→21:32)
[2016-10-19] MEDS: SODIUM CHLORIDE 0.9% FLUSH 10 ML FLUSH IV FLUSH SCH (13:59)
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
[2016-10-19] MEDS: oxyCODONE/ACETAMINOPHEN 10 MG/325 MG TAB PO PRN ×2 (14:37→21:31)
--- NOTE | 2016-10-19 18:02 | EKG ---
Date Performed: 10/19/2016 Time Performed: 09:06:38 PTAGE: 76 years EKG: Sinus rhythm MODERATE T-WAVE ABNORMALITY, CONSIDER LATERAL ISCHEMIA Compared to previous tracing, rate has slowed ABNORMAL ECG PREVIOUS TRACING : 08/07/2016 09.42 DOCTOR: Justin Love Interpretating Date/Time 10/19/2016 18:01:15
[2016-10-19] MEDS: MEDIUM DOSE INSULIN NOVOLOG SUPPLEMENTAL SCALE SQ SCH (21:00)
[2016-10-19] MEDS: DOCUSATE SODIUM 50 MG/SENNA 8.6 MG TAB PO SCH (21:00)
[2016-10-19] MEDS ORDERED: CHOLECALCIFEROL (VIT D3) 1000 UNIT TAB PO SCH (21:00)
[2016-10-19] MEDS ORDERED: ATORVASTATIN 10 MG TAB PO SCH (21:00)
[2016-10-19] MEDS ORDERED: MELATONIN 5 MG TAB PO SCH (21:00)
[2016-10-19] MEDS ORDERED: GLUCAGON 1 MG/ML VIAL OTHER PRN (21:15)
[2016-10-19] MEDS ORDERED: DEXTROSE 50% IN WATER 50 ML VIAL(D50) IV PUSH PRN (21:15)
[2016-10-19] MEDS: SACUBITRIL/VALSARTAN 24 MG-26 MG TAB PO SCH (23:23)
[2016-10-20] VITALS (16 sets, daily range): BP systolic 111–134; BP diastolic 62–77; PULSE 66–84; RESP 16–18; TEMP 98.5–98.6; O2SAT 95–99
[2016-10-20] MEDS: oxyCODONE/ACETAMINOPHEN 10 MG/325 MG TAB PO PRN ×2 (05:10→11:49)
[2016-10-20] MEDS: GABAPENTIN 100 MG CAP PO SCH ×2 (05:10→14:00)
[2016-10-20] MEDS: MEDIUM DOSE INSULIN NOVOLOG SUPPLEMENTAL SCALE SQ SCH ×2 (07:00→11:00)
[2016-10-20 07:25] LABS: AUTOMATED NEUTROPHIL # 5.8 TH/MM3 (1.8-7.7); BASOPHIL # 0.1 TH/MM3 (0-0.2); BASOPHIL % 0.7 % (0.0-2.0); EOSINOPHIL # 0.3 TH/MM3 (0-0.4); EOSINOPHIL % 2.9 % (0.0-4.0); HEMATOCRIT 47.3 % (39.0-51.0); HEMO FLAGS DIFF FINAL; LYMPH % 23.5 % (9.0-44.0); LYMPHOCYTE # 2.2 TH/MM3 (1.0-4.8); MEAN CELL VOLUME 87.5 FL (80.0-100.0); MEAN CORPUSCULAR HEMOGLOBIN 28.9 PG (27.0-34.0); MONO % 9.5 % (0.0-8.0); NEUT % 63.4 % (16.0-70.0); PLATELET COUNT 371 TH/MM3 (150-450); RED CELL DISTRIBUTION WIDTH 15.8 % (11.6-17.2); WHITE BLOOD COUNT 9.2 TH/MM3 (4.0-11.0)
[2016-10-20 08:04] LABS: BICARBONATE 22.7 MEQ/L (21.0-32.0); POTASSIUM 4.2 MEQ/L (3.5-5.1)
[2016-10-20] MEDS: DOCUSATE SODIUM 50 MG/SENNA 8.6 MG TAB PO SCH (09:00)
[2016-10-20] MEDS ORDERED: INSULIN DETEMIR 100 UNITS/ML VIAL SQ SCH (09:00)
[2016-10-20] MEDS ORDERED: NADOLOL 40 MG TAB PO SCH (09:00)
[2016-10-20] MEDS: SODIUM CHLORIDE 0.9% FLUSH 10 ML FLUSH IV FLUSH SCH (09:00)
[2016-10-20] MEDS ORDERED: ASPIRIN 325 MG TAB PO SCH (09:00)
[2016-10-20] MEDS ORDERED: NITROGLYCERIN 0.6 MG/HR PATCH T-DERMAL SCH (09:00)
[2016-10-20] MEDS ORDERED: REMOVE OLD NITRO-DUR (NITROGLYCERIN) PATCH T-DERMAL SCH (09:00)
[2016-10-20] MEDS: NIFEdipine 60 MG SUSTAINED RELEASE TAB PO SCH (09:06)
[2016-10-20] MEDS: SACUBITRIL/VALSARTAN 24 MG-26 MG TAB PO SCH (09:06)
[2016-10-20] MEDS: HEPARIN SODIUM - SQ 10,000 UNITS/ML VIAL SQ SCH (11:30)
--- NOTE | 2016-10-20 12:24 | EKG ---
Date Performed: 10/19/2016 Time Performed: 13:45:32 PTAGE: 76 years EKG: Sinus rhythm MODERATE T-WAVE ABNORMALITY, CONSIDER ANTEROLATERAL ISCHEMIA ABNORMAL ECG PREVIOUS TRACING : 10/19/2016 09.06 Compared to prior tracing no significant change DOCTOR: Justin Love Interpretating Date/Time 10/20/2016 12:22:20
--- NOTE | 2016-10-20 12:44 | HHI.PR ---
Subjective Interval History Alert, oriented, eager to go home, blood pressure well controlled Review of Systems Constitutional Constitutional Remarks 10 systems reviewed and otherwise negative Vitals/Results Intake & Output 10/19/16 10/19/16 10/20/16 15:00 23:00 07:00 Intake Total 360 ml Output Total 500 ml Balance -140 ml Intake Oral 360 ml Output Urine Total 500 ml Vital Signs Vital Signs Date Time Temp Pulse Resp B/P Pulse Ox O2 Delivery O2 Flow Rate FiO2 10/20/16 12:14 72 10/20/16 11:24 98.6 84 18 115/67 98 10/20/16 11:24 84 10/20/16 10:15 77 10/20/16 09:30 71 10/20/16 08:02 98.6 80 18 134/77 99 10/20/16 07:25 75 10/20/16 06:25 18 10/20/16 06:00 72 10/20/16 05:00 68 10/20/16 04:00 68 10/20/16 03:00 68 10/20/16 03:00 98.5 80 16 111/62 95 10/20/16 02:00 66 10/20/16 01:00 68 10/20/16 00:00 70 10/19/16 23:00 68 10/19/16 23:00 97.9 84 20 143/73 97 10/19/16 22:00 78 10/19/16 21:00 88 10/19/16 20:09 21 10/19/16 20:00 72 10/19/16 19:00 98.0 77 20 147/70 97 10/19/16 19:00 74 10/19/16 18:00 98.0 79 18 144/72 97 10/19/16 18:00 98.0 79 18 144/72 97 10/19/16 18:00 77 10/19/16 15:57 69 18 138/64 97 Room Air CBC/BMP: 10/20/16 0703 10/20/16 0703 Lab Results Laboratory Tests Test 10/19/16 10/20/16 12:55 07:03 Total Creatine Kinase 38 U/L Troponin I 0.06 NG/ML White Blood Count 9.2 TH/MM3 Red Blood Count 5.40 MIL/MM3 Hemoglobin 15.6 GM/DL Hematocrit 47.3 % Mean Corpuscular Volume 87.5 FL Mean Corpuscular Hemoglobin 28.9 PG Mean Corpuscular Hemoglobin 33.0 % Concent Red Cell Distribution Width 15.8 % Platelet Count 371 TH/MM3 Mean Platelet Volume 7.2 FL Neutrophils (%) (Auto) 63.4 % Lymphocytes (%) (Auto) 23.5 % Monocytes (%) (Auto) 9.5 % Eosinophils (%) (Auto) 2.9 % Basophils (%) (Auto) 0.7 % Neutrophils # (Auto) 5.8 TH/MM3 Lymphocytes # (Auto) 2.2 TH/MM3 Monocytes # (Auto) 0.9 TH/MM3 Eosinophils # (Auto) 0.3 TH/MM3 Basophils # (Auto) 0.1 TH/MM3 CBC Comment DIFF FINAL Differential Comment Sodium Level 135 MEQ/L Potassium Level 4.2 MEQ/L Chloride Level 102 MEQ/L Carbon Dioxide Level 22.7 MEQ/L Anion Gap 10 MEQ/L Blood Urea Nitrogen 12 MG/DL Creatinine 0.88 MG/DL Estimat Glomerular Filtration 84 ML/MIN Rate Random Glucose 173 MG/DL Calcium Level 9.2 MG/DL Physical Exam General General Appearance: Well Developed, Anxious Eyes Eye Exam: Pupils Reactive Ears & Nose Ears & Nose Exam: Nasal Mucosa Belden Throat Throat Exam: Oral Mucosa Belden & Moist Neck Neck Exam: Trachea Midline Pulmonary Resp Exam: Breath Sounds Equal Cardiology CV Exam: Normal Sinus Rhythm Gastrointestinal/Abdomen GI Exam: Soft, Non-Tender, Bowel Sounds Present Musculoskeletal MS Exam: Normal Gait, Normal Tone, Good Strength Integumentary Skin Exam: Clear, Warm, Dry, Intact, Normal Turgor Extremeties Extremities Exam: No Edema, Pedal Pulses Palpable Neurologic Neuro Exam: Alert, Awake, Oriented, Speech Clear, Moving All Extremities, Financial Services Assistant Equal, No Focal Deficits Assessment/Plan Assessment/Plan Assessment Hypertensive emergency on admission Pressure but controlled at this time Rule out secondary etiology for hypertension Anxiety Diabetes Management Seen by cardiology Seen by nephrology Felt Hat Flanging Operator like him to have an echo and a MRA of the renal arteries The patient would like to have that as an outpatient His condition was well-controlled earlier than anticipated for his presentation He'll be allowed to go home today with outpatient MRA and echocardiogram Case was discussed with bone density technician Diamond Sizer will see him as outpatient and do a workup for secondary hypertension Discussed with patient and Discussed with nurse 45 minutes Reese Cm MD Oct 20, 2016 12:44
[2016-10-20] MEDS ORDERED: CLON.1 PO (13:22)
[2016-10-20] MEDS ORDERED: NIFE60TA8 PO (13:22)
[2016-10-20] MEDS ORDERED: LABE200T2 PO (13:22)
--- NOTE | 2016-10-20 14:17 | MB ---
cc: CASANDRA CHILDERS MD DATE OF CONSULTATION: 10/20/2016. REASON FOR CONSULTATION: Uncontrolled hypertension for evaluation. HISTORY OF PRESENT ILLNESS: This is a 76-year-old male with past medical history of hypertension, diabetes mellitus, both for a long time, history of anxiety, lower extremity edema, chronic constipation, history of cerebrovascular accident, and benign prostatic hypertrophy who was admitted with uncontrolled hypertension. The patient came to the hospital mainly because his blood pressure was very high. He has labile blood pressure and is being managed by cardiology and his primary physician. He was on a clonidine patch and it was changed to oral clonidine. He was also was started on hydralazine. When his blood pressure goes very high, he feels lethargic and sometimes is also confused. He is feeling well now and he wants to go home. He denies any headache, dizziness or blurring of vision. He has no palpitations. He has history of weight loss, which he intentionally lost around 40 pounds. There is no excessive sweating. He claims to be compliant with his medications. PAST MEDICAL HISTORY: 1. Hypertension. 2. Diabetes mellitus. 3. Cerebrovascular accident. 4. Benign prostate hypertrophy. 5. Lower extremity edema. 6. Anxiety. 7. Chronic constipation. PAST SURGICAL HISTORY: 1. Lower extremity surgery with incision and drainage. REVIEW OF SYSTEMS: The patient has no headache, dizziness or blurring of vision. No shortness of breath. No chest pain. No palpitations. No nausea or vomiting. He has some weight loss, which he did intentionally in the last six or seven months. No nausea or vomiting. No abdominal pain. No history of diarrhea. No dysuria or hematuria. No history of excessive sweating or palpitations. SOCIAL HISTORY: The patient is . He is retired. He has no history of smoking or alcoholism. FAMILY HISTORY: Family history is positive for hypertension and cerebrovascular accident on the mother's side. ALLERGIES: HE IS ALLERGIC TO MULTIPLE MEDICATIONS INCLUDIN. PENICILLIN. 2. SEPTRA. 3. ZOSYN. CURRENT MEDICATIONS: 1. Macy-Colace one tablet twice a day. 2. Entresto 24 to 26 milligrams one tablet twice a day. 3. Aspirin 325 milligrams daily. 4. Nadolol 40 milligrams once a day. 5. Nitroglycerin patch daily. 6. Levemir 10 units subcutaneous daily. 7. Procardia XL 60 milligrams once a day. 8. Lipitor 10 milligrams at bedtime. 9. Vitamin D3 1000 units at bedtime. 10. Melatonin 5 milligrams at bedtime. 11. Heparin 5000 units subcutaneous q. 12 hours. 12. Clonidine patch TTS 0.3 every 7 days. 13. Neurontin 200 milligrams q. 8 hours. 14. Zofran as needed. PHYSICAL EXAMINATION: GENERAL: On examination, the patient is awake and alert and he is sitting in the bed in no acute distress. VITAL SIGNS: His last blood pressure was 115/67. When he came in, his blood pressure was 256/119, temperature is 98.6. Oxygen saturation 98% to 99% on room air. HEAD, EYES, EARS, NOSE, THROAT: The pupils are equal and reacting to light. Nonicteric sclerae. Conjunctivae are normal. NECK: The neck is supple. JVD is not elevated. LUNGS: The patient has bilateral good air entry. No wheezing. HEART: S1 and S2 regular rhythm. ABDOMEN: Abdomen soft and lax. There is no tenderness. Bowel sounds positive. EXTREMITIES: He has mild edema in both legs. INVESTIGATIONS: White blood cell count is 9.2, hemoglobin 15.6, platelet count of 371,000, neutrophils 63.4%. Sodium 135, potassium 4.2, chloride 102, bicarbonate 22.7, BUN 12, creatinine 0.8, glucose 173, calcium 9.2. INR is 0.9. There is no urinalysis done now but previously he had mild proteinuria. IMAGING STUDIES: The patient had a chest x-ray done yesterday which shows lung monge clear. ASSESSMENT AND PLAN: 1. Hypertension with labile blood pressure. 2. Diabetes mellitus. 3. History of CVA. 4. Anxiety. 5. Hyperlipidemia. The patient has reasonably controlled blood pressure. He will need workup for secondary hypertension including 24-hour urine and MRI or a CT angiogram. I did discuss this with the patient but he wants to go home today and he is willing to do all the workup as an outpatient. I did discuss this with Dr. Cm, and since his blood pressure is stable, he can be discharged on the same medication and I can follow him as an outpatient and do more workup for secondary hypertension and adjust the medications as needed. Thank you for the consultation, and the patient is stable to be discharged from the nephrology standpoint. MD KHLOE Horton/ISAAC /12:29 PM /1:58 PM
[2016-10-20] MEDS ORDERED: LABETALOL HCL 200 MG TAB PO SCH (21:00)
[2016-10-26] MEDS ORDERED: REMOVE OLD CATAPRES (CLONIDINE) PATCH T-DERMAL SCH (13:00)
== END 2016-10-20 14:51 | disposition home or self-care (01) | DRG 305 ==
LOC: NEPC 08:47 → NEDA 10:50 → HCIS 17:55
PROVIDERS: ADMIT Specialist; ATTEND Specialist
DX: I16.0 Hypertensive urgency (principal); E11.42 Type 2 diabetes mellitus with diabetic polyneuropathy; E11.65 Type 2 diabetes mellitus with hyperglycemia; I16.1 Hypertensive emergency; E78.5 Hyperlipidemia, unspecified; R41.82 Altered mental status, unspecified; I87.2 Venous insufficiency (chronic) (peripheral); N40.0 Benign prostatic hyperplasia without lower urinary tract symptoms; N30.10 Interstitial cystitis (chronic) without hematuria; F41.9 Anxiety disorder, unspecified; Z86.73 Personal history of transient ischemic attack (TIA), and cerebral infarction without residual deficits; M54.16 Radiculopathy, lumbar region; Z90.79 Acquired absence of other genital organ(s); R60.9 Edema, unspecified; K59.00 Constipation, unspecified; I10 Essential (primary) hypertension
CPT/HCPCS: 71010; 80048; 80053; 82550; 82948; 83735; 84484; 85025; 85610; 85730; 93005; 96374; J0360; J1644; J1815

== ENCOUNTER → 2016-11-21 | Day surgery (SDC) | payer MEDICARE ==
[~2016-11-21] MED LIST changes: +ASPI325T PO; +BUPIVACAINE HCL PF 0.75% 30 ML VIAL ONE; +CLON.1 PO; -EPIN1INJ21 IV PUSH; -EPIN1INJ21 SQ; -HYDR-3798 PO; +HYDR-3800; -INVA1INJ IV; +LABE200T2 PO; -NADO40TA PO; +NIFE30TA61 PO; +NIFE60TA8 PO; +NITR0.6D T-DERMAL; +PROPOFOL 200 MG/20 ML AMP IV ONE; +SACU1TAB PO; -SOLU250I IV PUSH; +TRIAMCINOLONE ACETONIDE 40 MG/ML VIAL I-ARTICULR ONE
--- NOTE | 2016-11-25 13:36 | M6 ---
cc: LEONEL MCCLENDON M.D. DATE 11/21/2016 DATE OF 1940 PROCEDURE Fluoroscopically guided injection bilateral lumbar facet joints (bilateral L3-4, L4-5 and L5-S1 facet joints). History and physical was completed and signed. Consent was signed. Procedure site was marked. Medications were listed and reconciled. Pain score was recorded. Allergies were noted. Time out was taken. Fluoroscopy time was recorded where applicable. Sedation was administered or directed by Dr. Mcclendon. The patient was given oxygen. The patient was monitored by a registered nurse. Total procedure time was greater than 15 minutes. PROCEDURE NOTE IV was started. Blood pressure cuff, pulse oximeter and EKG were applied. The patient was placed in the prone position on a Candido table, sedated with small amounts of propofol titrated to effect. Vital signs were monitored and remained stable throughout the procedure. The lumbar area was prepped with alcohol and 10% Betadine solution and draped with sterile drapes. Fluoroscopy was used in a Federico dog view to clearly visualize the bilateral lumbar facet joints at L3-4, L4-5 and L5-S1. Separate sterile 3-1/2-inch, 25-gauge spinal needles were advanced into these joints under fluoroscopic guidance. There was negative aspiration for blood or any other type of fluid and at each location the patient was given 1 mL of 0.75% Marcaine and 10 mg of Kenalog. Following the procedure the patient was taken to the recovery room with stable vital signs neurologically. He will be evaluated immediately and with followup to determine if he has a subjective decrease in his usual pain and a corresponding objective increase in his functional capability. W. Adolph Mcclendon MD [facility]/EDGAR /10:23 AM /1:30 PM
== END | disposition home or self-care (01) ==
LOC: PHSDC 08:49
PROVIDERS: ATTEND Pain Medicine Interventional Pain Medicine
DX: M54.5 Low back pain (principal)
CPT/HCPCS: 64493; 64494; 64495; 99152; J3301

== ENCOUNTER → 2016-12-05 | Day surgery (SDC) | payer MEDICARE ==
[~2016-12-05] MED LIST changes: -ASPI325T PO; +BUPIVACAINE HCL PF 0.5% 30 ML VIAL ONE; -BUPIVACAINE HCL PF 0.75% 30 ML VIAL ONE; -CLON.1 PO; -GABA100C4 PO; -HYDR-3800; -NIFE60TA8 PO; -NITR0.6D T-DERMAL; +methylPREDNISolone ACETATE 40 MG/ML VIAL I-ARTICULR ONE
--- NOTE | 2016-12-07 20:39 | M6 ---
cc: LEONEL MCCLENDON M.D. DATE: 12/05/2016. DATE OF : 1940 PROCEDURE PERFORMED: Fluoroscopically guided injection bilateral sacroiliac joints. DESCRIPTION OF THE PROCEDURE IN DETAIL: History and physical was completed and signed. Consent was signed. Procedure site was marked. Medications were listed and reconciled. Pain score was recorded. Allergies were noted. Time out was taken. Fluoroscopy time was recorded where applicable. Sedation was administered or directed by Dr. Mcclendon. The patient was given oxygen. The patient was monitored by a registered nurse. Total procedure time was greater than 15 minutes. IV was started, blood pressure cuff, pulse oximeter and EKG were applied. The patient was placed in the prone position on a Candido table and sedated with small amounts of propofol titrated to effect. Vital signs were monitored and remained stable throughout the procedure. Sacral area was prepped with alcohol and 10% Betadine solution and draped with sterile drapes. Fluoroscopy was used shooting from medial to lateral to clearly visualize the posterior joint line of the bilateral sacroiliac joints. Separate sterile 5-inch 22-gauge spinal needles were advanced into these joints under fluoroscopic guidance. There was negative aspiration for blood or any other type of fluid and at each location the patient was given 2 mL of 0.5% Marcaine 20 mg of Depo-Medrol 20 mg of Kenalog. Following the procedure, the patient was taken to the recovery room with stable vital signs neurologically intact. WMD VANCE Galindo/ISAAC /10:10 AM /8:28 PM
== END | disposition home or self-care (01) ==
LOC: PHSDC 08:45
PROVIDERS: ATTEND Pain Medicine Interventional Pain Medicine
DX: M54.5 Low back pain (principal)
CPT/HCPCS: 27096; 99152; G0260; J1030; J3301